=== PATIENT | female | born 1980 | race Caucasian/White ===

== ENCOUNTER → 2016-12-20 | Outpatient (CLI) | payer MEDICAID ==
--- NOTE | 2016-12-20 17:28 | XR ---
EXAMINATION TYPE: XR chest 2V DATE OF EXAM: 12/20/2016 COMPARISON: NONE HISTORY: Bronchitis TECHNIQUE: Frontal and lateral views of the chest are obtained. FINDINGS: Heart and mediastinum are normal. Lungs are clear. Diaphragm is normal. Bony thorax is int act. IMPRESSION: Normal chest
== END | disposition home or self-care (01) ==
LOC: RADXRMAIN 16:41
PROVIDERS: ATTEND Physician Assistant
DX: J20.9 Acute bronchitis, unspecified (principal)
CPT/HCPCS: 71020

== ENCOUNTER 2016-12-22 09:59 | Emergency (ER) | payer MEDICAID ==
[2016-12-22 10:24] VITALS: TEMP 97.9
[2016-12-22] MEDS ORDERED: IPRATROPIUM-ALBUTEROL 3 ML NEB INHALATION STA ×2 (10:34→11:43)
[2016-12-22] MEDS ORDERED: methylPREDNISolone SOD SUCCI 125 MG/2 ML VIAL IV STA (10:34)
--- NOTE | 2016-12-22 10:36 | ED ---
SOB HPI - General Chief Complaint: Shortness of Breath Stated Complaint: delisa, bodyaches Time Seen by Provider: 12/22/16 10:14 Source: patient, RN notes reviewed Mode of arrival: ambulatory Limitations: no limitations - History of Present Illness Initial Comments: 36-year-old female presents emergency Department chief complaint of shortness of breath. Patient states she has been sick since last Sunday. Patient states that she has been seen by her primary care physician's office twice for this. Patient was given IM Rocephin Depo-Medrol given oral is at the mycin and Medrol Dosepak and she uses pro-air inhaler. She states that then he only gives us a short period of time of relief of her shortness of breath. She states initially she does had rattling in her chest but now she states she has a cough is getting worse. Denies any palpitations. Patient denies any fever or chills. She states that she just finished her antibiotics and steroid pack and states that she does not feel any better. Patient was given cough syrup which did not fill it does not want to codeine. Patient denies any sick contacts. Patient states she has a history of exercise-induced asthma. - Related Data Home Medications Medication Instructions Recorded Confirmed Albuterol Inhaler [Ventolin Hfa 1 - 2 puff INHALATION RT-Q6H PRN 12/22/16 Inhaler] Azithromycin [Zithromax Z-pack] See Taper PO DIRECTED 12/22/16 12/22/16 Levothyroxine Sodium [Synthroid] 125 mcg PO DAILY 12/22/16 12/22/16 methylPREDNISolone [Medrol Dose See Taper PO DIRECTED 12/22/16 12/22/16 Pack] Previous Rx's Medication Instructions Recorded Albuterol Nebulized [Ventolin 2.5 mg INHALATION Q4H PRN #25 nebu 12/22/16 Nebulized] predniSONE 50 mg PO DAILY #5 tab 12/22/16 Allergies Allergy/AdvReac Type Severity Reaction Status Date / Time bupropion HCl Allergy Severe Rash/Hives Verified 12/22/16 10:55 [From Wellbutrin] Review of Systems ROS Statement: Those systems with pertinent positive or pertinent negative responses have been documented in the HPI. ROS Other: All systems not noted in ROS Statement are negative. Past Medical History Past Medical History: Asthma Additional Past Medical History / Comment(s): EXERCISE INDUCED ASTHMA., PAST THYROID TEST RESULTS WERE NOT CLEAR -HAVING TESTING REPEATED. History of Any Multi-Drug Resistant Organisms: None Reported Past Surgical History: Adenoidectomy, Cholecystectomy, Tonsillectomy Additional Past Surgical History / Comment(s): nasal polyp Past Anesthesia/Blood Transfusion Reactions: Previous Problems w/ Anesthesia, Motion Sickness Additional Past Anesthesia/Blood Transfusion Reaction / Comment(s): HAS CHILLS OR SHAKING WHEN COMING OUT OF ANESTHESIA. PT ADOPTED - LIMITED FAMILY HX. Past Psychological History: Anxiety Smoking Status: Former smoker Past Alcohol Use History: Occasional Past Drug Use History: None Reported - Past Family History Father Family Medical History: Cancer Additional Family Medical History / Comment(s): LUNG CANCER WITH METS Mother Additional Family Medical History / Comment(s): HEART AND LIVER FAILURE General Exam Limitations: no limitations General appearance: alert, in no apparent distress Head exam: Present: atraumatic, normocephalic, normal inspection Eye exam: Present: normal appearance, PERRL, EOMI. Absent: scleral icterus, conjunctival injection, periorbital swelling ENT exam: Present: normal exam, normal oropharynx, mucous membranes moist, TM's normal bilaterally, normal external ear exam Neck exam: Present: normal inspection, full ROM. Absent: tenderness, meningismus, lymphadenopathy Respiratory exam: Present: wheezes. Absent: normal lung sounds bilaterally, respiratory distress, rales, rhonchi, stridor Cardiovascular Exam: Present: regular rate, normal rhythm, normal heart sounds. Absent: systolic murmur, diastolic murmur, rubs, gallop, clicks Neurological exam: Present: alert, oriented X3, CN II-XII intact Skin exam: Present: warm, dry, intact, normal color. Absent: rash Course Vital Signs 12/22/16 12/22/16 12/22/16 10:19 10:30 10:46 Temperature 97.9 F Pulse Rate 89 92 Respiratory 20 22 Rate Blood Pressure 129/60 O2 Sat by Pulse 91 L Oximetry 12/22/16 12/22/16 12/22/16 11:00 11:51 12:02 Temperature Pulse Rate 88 84 88 Respiratory Rate Blood Pressure O2 Sat by Pulse Oximetry Medical Decision Making - Medical Decision Making 36-year-old female presented for cough congestion shortness of breath. Patient' s lab work, chest x-ray within normal limits. Patient has a URI with acute asthma exacerbation. Patient does feel better at this time. She has minimal wheezing after 2 treatments. Patient was offered admission for further treatments and steroids though she states she will go home at this time and return if symptoms worsen. - Lab Data Result diagrams: 12/22/16 10:40 12/22/16 10:40 Lab Results 12/22/16 12/22/16 12/22/16 Range/Units 10:40 10:40 10:40 WBC 6.9 (3.8-10.6) k/uL RBC 4.46 (3.80-5.40) m/uL Hgb 14.4 (11.4-16.0) gm/dL Hct 40.7 (34.0-46.0) % MCV 91.1 (80.0-100.0) fL MCH 32.2 (25.0-35.0) pg MCHC 35.3 (31.0-37.0) g/dL RDW 13.5 (11.5-15.5) % Plt Count 174 (150-450) k/uL Neutrophils % 76 % Lymphocytes % 15 % Monocytes % 5 % Eosinophils % 1 % Basophils % 0 % Neutrophils # 5.2 (1.3-7.7) k/uL Lymphocytes # 1.1 (1.0-4.8) k/uL Monocytes # 0.4 (0-1.0) k/uL Eosinophils # 0.0 (0-0.7) k/uL Basophils # 0.0 (0-0.2) k/uL Sodium 140 (137-145) mmol/L Potassium 3.8 (3.5-5.1) mmol/L Chloride 107 (98-107) mmol/L Carbon Dioxide 20 L (22-30) mmol/L Anion Gap 13 mmol/L BUN 12 (7-17) mg/dL Creatinine 0.80 (0.52-1.04) mg/dL Est GFR (MDRD) Af Amer >60 (>60 ml/min/1.73 sqM) Est GFR (MDRD) Non-Af >60 (>60 ml/min/1.73 sqM) Glucose 94 (74-99) mg/dL Calcium 8.8 (8.4-10.2) mg/dL Total Bilirubin 0.3 (0.2-1.3) mg/dL AST 24 (14-36) U/L ALT 31 (9-52) U/L Alkaline Phosphatase 64 (38-126) U/L NT-Pro-B Natriuret Pep 141 pg/mL Total Protein 6.7 (6.3-8.2) g/dL Albumin 4.2 (3.5-5.0) g/dL Disposition Clinical Impression: Asthma exacerbation, URI (upper respiratory infection) Disposition: HOME SELF-CARE Condition: Stable Instructions: Asthma (ED) Additional Instructions: Please return to the Emergency Department if symptoms worsen or any other concerns. Prescriptions: Albuterol Nebulized [Ventolin Nebulized] 2.5 mg INHALATION Q4H PRN #25 nebu PRN Reason: difficulty in breathing predniSONE 50 mg PO DAILY #5 tab Referrals: Aly Higgins MD [Primary Care Provider] - 1-2 days Time of Disposition: 12:15
[2016-12-22 10:56] LABS: Basophils % (A) 0 %; CH 30.9; CHCM 34.1; Eosinophils % (A) 1 %; HCT 40.7 % (34.0-46.0); HDW 2.42; HGB 14.4 gm/dL (11.4-16.0); Luc # (Auto) 0.16; Luc % (Auto) 2; Lymphocytes # (A) 1.1 k/uL (1.0-4.8); Lymphocytes % (A) 15 %; MCH 32.2 pg (25.0-35.0); MCHC 35.3 g/dL (31.0-37.0); MCV 91.1 fL (80.0-100.0); Mean Platelet Volume 7.6; Monocytes # (A) 0.4 k/uL (0-1.0); Monocytes % (A) 5 %; Neutrophils # (A) 5.2 k/uL (1.3-7.7); Neutrophils % (A) 76 %; RBC 4.46 m/uL (3.80-5.40); RDW 13.5 % (11.5-15.5); WBC 6.9 k/uL (3.8-10.6); WBC (Perox) 6.94
[2016-12-22 11:09] LABS: ALT 31 U/L (9-52); AST 24 U/L (14-36); Alkaline Phosphatase 64 U/L (38-126); Anion Gap 13 mmol/L; Blood Urea Nitrogen 12 mg/dL (7-17); Calcium 8.8 mg/dL (8.4-10.2); Carbon Dioxide 20 mmol/L (22-30); Chloride 107 mmol/L (98-107); Glucose 94 mg/dL (74-99); Non-African American GFR(MDRD) >60 (>60 ml/min/1.73 sqM); Potassium 3.8 mmol/L (3.5-5.1); Sodium 140 mmol/L (137-145); Total Bilirubin 0.3 mg/dL (0.2-1.3); Total Protein 6.7 g/dL (6.3-8.2)
--- NOTE | 2016-12-22 11:23 | XR ---
EXAMINATION TYPE: XR chest 2V DATE OF EXAM: 12/22/2016 COMPARISON: Chest x-ray from 2 days ago. HISTORY: Shortness of breath and cough. Diagnosis of bronchitis. TECHNIQUE: Frontal and lateral views of the chest are obtained. FINDINGS: There is no focal air space opacity, pleural effusion, or pneumothorax seen. The cardiac silhouette size is within normal limits. The osseous structures are intact. IMPRESSION: No acute cardiopulmonary process. No significant change from prior.
[2016-12-22 12:28] VITALS: BP 123/64; PULSE 91; RESP 14
== END 2016-12-22 12:33 | disposition home or self-care (01) ==
LOC: EC 09:59
DX: J45.901 Unspecified asthma with (acute) exacerbation (principal); J06.9 Acute upper respiratory infection, unspecified; Z87.891 Personal history of nicotine dependence; Z88.8 Allergy status to other drugs, medicaments and biological substances; Z79.899 Other long term (current) drug therapy
CPT/HCPCS: 99285; 96374; 36415; 94640 ×2; 83880; 80053; 85025; 71020; J2930

== ENCOUNTER 2016-12-23 13:42 | Inpatient (IN) | payer MEDICAID ==
[2016-12-23] MEDS ORDERED: SODIUM CHLORIDE 0.9% 1,000 ML IV ONE (14:09)
[2016-12-23] MEDS ORDERED: ALBUTEROL NEBULIZED 2.5 MG/3 ML INHALATION STA (14:10)
[2016-12-23] MEDS ORDERED: IPRATROPIUM 0.5 MG/2.5 ML NEBU INHALATION STA (14:11)
[2016-12-23] MEDS ORDERED: DEXAMETHASONE SOD PHOSPHATE 10 MG/ML 1 ML VIAL IV STA (14:12)
[2016-12-23] MEDS ORDERED: RX INFO: IV CONTRAST WAS GIVEN 1 EACH MISC MISCELLANE PRN (14:13)
[2016-12-23] MEDS ORDERED: AZITHROMYCIN 500 MG in SODIUM CHLORIDE 0.9% 250 ML IVPB STA (14:14)
[2016-12-23] MEDS ORDERED: cefTRIAXone 2,000 MG in SODIUM CHLORIDE 0.9% 100 ML IVPB STA (14:14)
--- NOTE | 2016-12-23 14:18 | ED ---
SOB HPI - General Chief Complaint: Shortness of Breath Stated Complaint: SUGAR Time Seen by Provider: 12/23/16 13:55 Source: patient Mode of arrival: ambulatory Limitations: no limitations - History of Present Illness Initial Comments: Shortness of breath, this is ongoing for about a week now she was seen in ER yesterday and she was also seen by family doctor twice a lawsuit is just some steroids and she'll prescription of Zithromax and she also had intramuscular shot of. Today her breathing is worse she is quite hypoxic and she spiked a fever today is 102.1 and pulse is quite high. She is complaining about the chest pain when she takes a deep breath she is quite short winded and feels chest pressure in the center of her chest. Past medical history is significant for asthma no other medical problems - Related Data Home Medications Medication Instructions Recorded Confirmed Albuterol Inhaler [Ventolin Hfa 1 - 2 puff INHALATION RT-Q6H PRN 12/22/16 Inhaler] Levothyroxine Sodium [Synthroid] 125 mcg PO DAILY 12/22/16 12/23/16 Promethaz-Cod 6.25-10 mg/5 ml 5 ml PO Q6H PRN 12/23/16 12/23/16 [Phenergan with Codeine] guaiFENesin [Mucinex] 600 mg PO BID PRN 12/23/16 12/23/16 Previous Rx's Medication Instructions Recorded Albuterol Nebulized [Ventolin 2.5 mg INHALATION Q4H PRN #25 nebu 12/22/16 Nebulized] predniSONE 50 mg PO DAILY #5 tab 12/22/16 Allergies Allergy/AdvReac Type Severity Reaction Status Date / Time bupropion HCl Allergy Severe Rash/Hives Verified 12/23/16 14:26 [From Wellbutrin] Review of Systems ROS Statement: Those systems with pertinent positive or pertinent negative responses have been documented in the HPI. ROS Other: All systems not noted in ROS Statement are negative. Past Medical History Past Medical History: Asthma Additional Past Medical History / Comment(s): EXERCISE INDUCED ASTHMA., PAST THYROID TEST RESULTS WERE NOT CLEAR -HAVING TESTING REPEATED. History of Any Multi-Drug Resistant Organisms: None Reported Past Surgical History: Adenoidectomy, Cholecystectomy, Tonsillectomy Additional Past Surgical History / Comment(s): nasal polyp Past Anesthesia/Blood Transfusion Reactions: Previous Problems w/ Anesthesia, Motion Sickness Additional Past Anesthesia/Blood Transfusion Reaction / Comment(s): HAS CHILLS OR SHAKING WHEN COMING OUT OF ANESTHESIA. PT ADOPTED - LIMITED FAMILY HX. Past Psychological History: Anxiety Smoking Status: Former smoker Past Alcohol Use History: Occasional Past Drug Use History: None Reported - Past Family History Father Family Medical History: Cancer Additional Family Medical History / Comment(s): LUNG CANCER WITH METS Mother Additional Family Medical History / Comment(s): HEART AND LIVER FAILURE General Exam - General Exam Comments Initial Comments: General: The patient is awake and alert, in moderate distress Skin: Skin is warm and dry and no rashes or lesions are noted. Eye: Pupils are equal, round and reactive to light, extra-ocular movements are intact; there is normal conjunctiva bilaterally. Ears, nose, mouth and throat: There are moist mucous membranes and no oral lesions. Neck: The neck is supple, there is no tenderness or JVD. Cardiovascular: There is a regular rate and rhythm. No murmur, rub or gallop is appreciated. She has a tachycardia Respiratory: To auscultation bilateral, severe wheezing bilateral Gastrointestinal: Soft, non-distended, non-tender abdomen without masses or organomegaly noted. There is no rebound or guarding present. Bowel sounds are unremarkable. Back: There is no tenderness to palpation in the midline. There is no obvious deformity. Musculoskeletal: Normal ROM, no tenderness, There is no pedal edema. There is no calf tenderness or swelling. No cords were appreciated. Neurological: CN II-XII intact, Cranial nerves III through XII are intact. There are no obvious motor or sensory deficits. Coordination appears grossly intact. Speech is normal. Psychiatric: Cooperative, appropriate mood & affect, normal judgment. Limitations: no limitations Course Vital Signs 12/23/16 12/23/16 12/23/16 13:49 14:06 14:31 Temperature 102.1 F H 101.9 F H Pulse Rate 116 H 112 H Respiratory 20 18 Rate Blood Pressure 119/58 124/61 O2 Sat by Pulse 97 93 L Oximetry 12/23/16 12/23/16 12/23/16 15:05 15:30 16:12 Temperature 100.5 F H Pulse Rate 115 H 115 H 102 H Respiratory 20 18 Rate Blood Pressure 115/55 111/52 O2 Sat by Pulse 94 L 93 L Oximetry - Reevaluation(s) Reevaluation #1: 12/23/16 16:41 EKG is sinus tachycardia heart rate 122 IL interval is 124 QRS duration is 80 QT /QTc is 336/478 and 50 mL EKG does not reveal any ST elevation or ST depression is definitely tachycardic Medical Decision Making - Lab Data Result diagrams: 12/23/16 14:10 12/23/16 14:10 Lab Results 12/23/16 12/23/16 12/23/16 Range/Units 14:10 14:10 14:10 WBC 10.2 (3.8-10.6) k/uL RBC 4.40 (3.80-5.40) m/uL Hgb 13.9 (11.4-16.0) gm/dL Hct 40.8 (34.0-46.0) % MCV 92.5 (80.0-100.0) fL MCH 31.6 (25.0-35.0) pg MCHC 34.1 (31.0-37.0) g/dL RDW 13.7 (11.5-15.5) % Plt Count 172 (150-450) k/uL Neutrophils % 91 % Lymphocytes % 6 % Monocytes % 2 % Eosinophils % 1 % Basophils % 0 % Neutrophils # 9.3 H (1.3-7.7) k/uL Lymphocytes # 0.6 L (1.0-4.8) k/uL Monocytes # 0.2 (0-1.0) k/uL Eosinophils # 0.1 (0-0.7) k/uL Basophils # 0.0 (0-0.2) k/uL PT (9.0-12.0) sec INR (<1.1) APTT (22.0-30.0) sec Sodium 139 (137-145) mmol/L Potassium 4.0 (3.5-5.1) mmol/L Chloride 105 (98-107) mmol/L Carbon Dioxide 21 L (22-30) mmol/L Anion Gap 13 mmol/L BUN 13 (7-17) mg/dL Creatinine 0.60 (0.52-1.04) mg/dL Est GFR (MDRD) Af Amer >60 (>60 ml/min/1.73 sqM) Est GFR (MDRD) Non-Af >60 (>60 ml/min/1.73 sqM) Glucose 119 H (74-99) mg/dL Plasma Lactic Acid Je 1.6 (0.7-2.0) mmol/L Calcium 8.7 (8.4-10.2) mg/dL Total Bilirubin 0.3 (0.2-1.3) mg/dL AST 48 H (14-36) U/L ALT 37 (9-52) U/L Alkaline Phosphatase 60 (38-126) U/L Total Protein 6.7 (6.3-8.2) g/dL Albumin 4.1 (3.5-5.0) g/dL Group A Strep Rapid (Negative) 12/23/16 12/23/16 Range/Units 14:10 14:10 WBC (3.8-10.6) k/uL RBC (3.80-5.40) m/uL Hgb (11.4-16.0) gm/dL Hct (34.0-46.0) % MCV (80.0-100.0) fL MCH (25.0-35.0) pg MCHC (31.0-37.0) g/dL RDW (11.5-15.5) % Plt Count (150-450) k/uL Neutrophils % % Lymphocytes % % Monocytes % % Eosinophils % % Basophils % % Neutrophils # (1.3-7.7) k/uL Lymphocytes # (1.0-4.8) k/uL Monocytes # (0-1.0) k/uL Eosinophils # (0-0.7) k/uL Basophils # (0-0.2) k/uL PT 10.2 (9.0-12.0) sec INR 1.0 (<1.1) APTT 25.9 (22.0-30.0) sec Sodium (137-145) mmol/L Potassium (3.5-5.1) mmol/L Chloride (98-107) mmol/L Carbon Dioxide (22-30) mmol/L Anion Gap mmol/L BUN (7-17) mg/dL Creatinine (0.52-1.04) mg/dL Est GFR (MDRD) Af Amer (>60 ml/min/1.73 sqM) Est GFR (MDRD) Non-Af (>60 ml/min/1.73 sqM) Glucose (74-99) mg/dL Plasma Lactic Acid Je (0.7-2.0) mmol/L Calcium (8.4-10.2) mg/dL Total Bilirubin (0.2-1.3) mg/dL AST (14-36) U/L ALT (9-52) U/L Alkaline Phosphatase (38-126) U/L Total Protein (6.3-8.2) g/dL Albumin (3.5-5.0) g/dL Group A Strep Rapid Negative (Negative) Critical Care Time Total Critical Care Time: 45 Critical Care Time: He has been in and out of the family doctor's office as well as here for last 4 days, her shortness of breath has gotten worse she is quite tachycardic with the Clinic and Review of heart is normal CBC normal, BS metabolic panel and CT of the chest which was placed to return to rule out any PE and CT of the pleuritic chest pain and it showed pulmonary team comparing to her x-ray from yesterday she was started on Lasix IV she had Ventolin and Atrovent neb prolonged 1 for asthma and a 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 Philip's service, we also have a septic workup done including urine culture blood culture in the meantime considering her high fever up to keep her on empiric antibiotics Disposition Clinical Impression: Dyspnea, Tachycardia, Fever, Pulmonary edema Disposition: ADMITTED IP TO THIS HOSP Condition: Good Referrals: Aly Higgins MD [Primary Care Provider] - 1-2 days
[2016-12-23] MEDS ORDERED: ACETAMINOPHEN TAB 500 MG TAB PO STA (14:21)
[2016-12-23] MEDS: SODIUM CHLORIDE 0.9% 1,000 ML IV SCH ×2 (14:23→18:12)
[2016-12-23 14:27] LABS: Basophils % (A) 0 %; CH 31.2; CHCM 33.9; Eosinophils # (A) 0.1 k/uL (0-0.7); Eosinophils % (A) 1 %; HCT 40.8 % (34.0-46.0); HDW 2.38; HGB 13.9 gm/dL (11.4-16.0); Luc % (Auto) 1; Lymphocytes # (A) 0.6 k/uL (1.0-4.8); Lymphocytes % (A) 6 %; MCH 31.6 pg (25.0-35.0); MCHC 34.1 g/dL (31.0-37.0); MCV 92.5 fL (80.0-100.0); Mean Platelet Volume 7.7; Monocytes # (A) 0.2 k/uL (0-1.0); Monocytes % (A) 2 %; Neutrophils # (A) 9.3 k/uL (1.3-7.7); Neutrophils % (A) 91 %; RDW 13.7 % (11.5-15.5); WBC 10.2 k/uL (3.8-10.6); WBC (Perox) 10.38
[2016-12-23 14:35] LABS: Partial Thromboplastin Time 25.9 sec (22.0-30.0); Prothrombin Time 10.2 sec (9.0-12.0)
[2016-12-23 14:39] LABS: ALT 37 U/L (9-52); AST 48 U/L (14-36); Alkaline Phosphatase 60 U/L (38-126); Anion Gap 13 mmol/L; Blood Urea Nitrogen 13 mg/dL (7-17); Calcium 8.7 mg/dL (8.4-10.2); Carbon Dioxide 21 mmol/L (22-30); Chloride 105 mmol/L (98-107); Glucose 119 mg/dL (74-99); Non-African American GFR(MDRD) >60 (>60 ml/min/1.73 sqM); Sodium 139 mmol/L (137-145); Total Bilirubin 0.3 mg/dL (0.2-1.3); Total Protein 6.7 g/dL (6.3-8.2)
--- NOTE | 2016-12-23 16:00 | CT ---
EXAMINATION TYPE: CT angio chest DATE OF EXAM: 12/23/2016 3:43 PM COMPARISON: NONE HISTORY: Patient complains of severe shortness of breath, unresponsive to treatment. CT DLP: 439.3 mGycm Automated exposure control for dose reduction was used. CONTRAST: CTA scan of the thorax is performed with IV Contrast, patient injected with 100 mL of Omnipaque 350, pulmonary embolism protocol. There are 3-D post processed images.. FINDINGS: There are patchy bilateral areas of pulmonary alveolar edema. There is no pleural effusion. There is no pericardial effusion. There is no sign of aortic aneurysm or dissection. There is a 1.7 cm left bronchial lymph node. There is 1.5 cm right bronchial lymph node. There is low attenuation adjacent to the right lower lobe pulmonary artery thought to be due to a 1 cm lymph node on axial image 59. There is suboptimal contrast density in the pulmonary arteries. The bony thorax i s intact. IMPRESSION: NO EVIDENCE OF PULMONARY EMBOLISM. MILD BRONCHIAL ADENOPATHY. BILATERAL PATCHY PULMONARY EDEMA OF [facility] ERTAIN ORIGIN. THE PULMONARY EDEMA IS NEW COMPARED TO CHEST X-RAY YESTERDAY. THIS COULD RELATE TO DEV ELOPING RDS.
[2016-12-23] MEDS ORDERED: POTASSIUM CHLORIDE ORAL LIQUID 40 MEQ/30 ML CUP PO ONE (16:27)
[2016-12-23] MEDS ORDERED: FUROSEMIDE 10 MG/ML 10 ML VIAL IV STA (16:28)
[2016-12-23] MEDS ORDERED: ALBUTEROL INHALER 60 PUFF/8 GM INHALER INHALATION PRN (17:01)
[2016-12-23] MEDS: ALBUTEROL NEBULIZED 2.5 MG/3 ML INHALATION PRN (19:07)
[2016-12-23] MEDS ORDERED: FUROSEMIDE 10 MG/ML 4 ML VIAL IV STA (20:08)
[2016-12-23] MEDS: PROMETHAZ-COD 6.25-10 MG/5 ML 5 ML CUP PO PRN (20:18)
[2016-12-23] MEDS: methylPREDNISolone SOD SUCCI 125 MG/2 ML VIAL IV SCH ×2 (20:34→23:19)
[2016-12-23 20:50] LABS: Glucose,Whole Blood 194 mg/dL (75-99)
[2016-12-23] MEDS: INSULIN LISPRO (humaLOG) 300 UNIT/3 ML VIAL SQ SCH (21:01)
[2016-12-23 21:32] LABS: Appearance,Urine Clear (Clear); Bilirubin,Urine Negative (Negative); Glucose,Urine (UA) Negative (Negative); Ketones,Urine Negative (Negative); Leukocyte Esterase,Urine Negative (Negative); Nitrite,Urine Negative (Negative); Particle Count 491; Protein,Urine Negative (Negative); RBC,Urine 6 /hpf (0-5); Specific Gravity,Urine 1.004 (1.001-1.035); Squamous Epithelial Cell,Urine <1 /hpf (0-4); UA Billing (MACRO vs. MICRO) MICRO; Urobilinogen,Urine <2.0 mg/dL (<2.0); WBC,Urine 1 /hpf (0-5)
[2016-12-23] MEDS ORDERED: MELATONIN 5 MG TABLET PO PRN (21:59)
[2016-12-23] MEDS: ACETAMINOPHEN TAB 325 MG TAB PO PRN (23:20)
[2016-12-24] MEDS: ALBUTEROL NEBULIZED 2.5 MG/3 ML INHALATION PRN ×4 (01:10→15:57)
[2016-12-24] MEDS: PROMETHAZ-COD 6.25-10 MG/5 ML 5 ML CUP PO PRN ×2 (01:58→18:30)
[2016-12-24] MEDS: SODIUM CHLORIDE 0.9% 1,000 ML IV SCH ×3 (02:19→18:27)
[2016-12-24 05:45] LABS: Glucose,Whole Blood 138 mg/dL (75-99)
[2016-12-24] MEDS ORDERED: predniSONE 50 MG TAB PO SCH (09:00)
[2016-12-24] MEDS ORDERED: SPIRONOLACTONE 25 MG TAB PO SCH (09:00)
[2016-12-24] MEDS ORDERED: FUROSEMIDE 10 MG/ML 4 ML VIAL IV SCH (09:00)
--- NOTE | 2016-12-24 10:59 | XR ---
EXAMINATION TYPE: XR chest 2V DATE OF EXAM: 12/24/2016 HISTORY: sob. REFERENCE: Previous study dated 12/22/2016. FINDINGS: There is mild vascular congestion. There is no shannen edema or pneumonia. The heart is not e nlarged. IMPRESSION: VASCULAR CONGESTION WITHOUT OTHER ABNORMALITY.
[2016-12-24] MEDS: methylPREDNISolone SOD SUCCI 125 MG/2 ML VIAL IV SCH ×4 (11:24→22:16)
[2016-12-24] MEDS: LEVOTHYROXINE 125 MCG TAB PO SCH (11:24)
[2016-12-24] MEDS: INSULIN LISPRO (humaLOG) 300 UNIT/3 ML VIAL SQ SCH ×4 (11:24→22:33)
[2016-12-24] MEDS: ENOXAPARIN 40 MG/0.4 ML SYRINGE SQ SCH (11:25)
[2016-12-24 12:16] LABS: Glucose,Whole Blood 131 mg/dL (75-99)
[2016-12-24] MEDS: guaiFENesin 600 MG TABLET.ER PO PRN (12:32)
--- NOTE | 2016-12-24 13:12 | CONS ---
DATE OF CONSULTATION: Mrs. Galvez is a 36-year-old female who is seen for cardiac evaluation. The patient's emergency medical record reviewed. This patient has been not doing well for the last one week. She initially started with body ache and subsequently she had fever and shortness of breath and nonproductive cough. The patient was treated as an outpatient with steroids as well as antibiotics without any significant improvement. Patient subsequently came to the emergency room on Sunday. She was given IV steroids and was sent home. Yesterday, she continued to have short of breath and she was hypoxic and came to the emergency room. The patient had a temperature of 102.1. She denies any related chest pain. Patient denies any previous cardiac history of cardiomyopathy or any heart murmur. Home medications included: 1. Ventolin inhaler. 2. Mucinex. 3. Synthroid. 4. Albuterol. 5. Prednisone. Past medical history includes a history of cholecystectomy, tonsillectomy, history of exercise-induced asthma, history of anxiety. Smoking status: Former smoker. Family history is otherwise unremarkable. Physical examination in the emergency room revealed the patient's heart rate 116. Patient had a temperature of 102.1 and oxygen saturation was 97%. The patient's respiratory rate was 20. Patient is feeling slightly better. She is not in any acute respiratory distress. At present temperature is 99.2. Blood pressure is 129/62 millimeters of mercury, oxygen saturation is 93% on 3 liters of nasal cannula. HEENT examination is negative. Neck is supple. There is no increase in jugular venous pressure. Both the carotid pulses are felt. There is no bruit. Chest is symmetrical. HEART: The PMI is not felt. First and second heart sounds are normal. There is no evidence of any murmur. Lungs reveal bilateral few crackles more marked on the left side. ABDOMEN: Soft. EXTREMITIES: Peripheral pulsations are 2+. EKG shows evidence of sinus tachycardia without any acute ischemic changes. Patient's initial chest x-ray done 2 days ago was normal. CT scan done yesterday does not show any evidence of pulmonary embolism but there suggestion of pulmonary edema whether this is possibly developing pneumonia or ARDS. The patient's Pro-BNP level was only 117. Patient's white count is 10,200, but neutrophils are 90%. FINAL IMPRESSION: This patient is admitted with acute respiratory distress and cough. Patient is either developing pneumonia or acute respiratory distress syndrome, exact etiology of the infection is unclear. I do not think this patient's pulmonary edema on the CT scan is cardiogenic pulmonary edema. Patient's BNP level is 117. We will do echo and Doppler study. Discontinue the IV Lasix. If patient does not get better, pulmonary consultation is suggested.
[2016-12-24] MEDS: PANTOPRAZOLE 40 MG/10 ML VIAL IVP SCH (16:15)
[2016-12-24 17:07] LABS: Glucose,Whole Blood 188 mg/dL (75-99)
[2016-12-24] MEDS ORDERED: HYDROcodone/APAP 5-325MG 1 EACH TAB PO PRN (17:13)
[2016-12-24] MEDS ORDERED: AZITHROMYCIN 500 MG in SODIUM CHLORIDE 0.9% 250 ML IVPB SCH (18:00)
[2016-12-24] MEDS: ASPIRIN 325 MG TAB PO SCH (18:28)
[2016-12-24] MEDS ORDERED: IPRATROPIUM 0.5 MG/2.5 ML NEBU INHALATION SCH (20:00)
[2016-12-24] MEDS ORDERED: LEVALBUTEROL NEB 1.25 MG/3 ML AMP INHALATION SCH (20:00)
[2016-12-24] MEDS: IPRATROPIUM 0.5 MG/2.5 ML NEBU INHALATION SCH (20:37)
[2016-12-24] MEDS: FORMOTEROL FUMARATE 20 MCG/2 ML NEBU INHALATION SCH (20:37)
[2016-12-24] MEDS: BUDESONIDE 1 MG/2 ML NEBU INHALATION SCH (20:37)
[2016-12-24] MEDS: LEVALBUTEROL NEB (CONC) 1.25 MG/0.5 ML AMP INHALATION SCH (20:38)
--- NOTE | 2016-12-24 20:52 | HP ---
DATE OF ADMISSION: 12/23/2016 CHIEF COMPLAINT: Shortness of breath, cough and sputum. HISTORY OF PRESENT ILLNESS: This 36-year-old woman with a past medical history of multiple medical problems, including asthma, history of hypothyroidism, history of hypothyroidism, adenoidectomy, cholecystectomy, anxiety being followed by Dr. 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 The patient was visiting also on Sunday. The patient since last Sunday. The patient also had outpatient antibiotics including Z-Gokul as well as Medrol Dosepak. As well cough and sputum was increasing and the patient became quite short of breath yesterday and the patient came to [facility] and was admitted to the hospital for further evaluation and treatment. The fever was up to 102.1. There is no history of any rigors or chills. No history of headache, loss of consciousness or seizures. The patient on admission had pulse ox of 94% on 8 liters. The shows features of tachycardia also. There is no history of any melena, hematochezia at this time. PAST MEDICAL HISTORY: History of hypothyroidism. History of adenoidectomy, cholecystectomy, hysterectomy and tonsillectomy. Medications prior to admission include home medications are: 1. Prednisone 50 mg p.o. daily. 2. Mucinex 600 mg b.i.d. p.r.n. 3. Phenergan 5 mL q.6h p.r.n. 4. Synthroid 120 mcg. 5. Ventolin 2.5 q.4 p.r.n. 6. Ventolin HFA inhaler 1 to 2 puffs q.6h p.r.n. ALLERGIES: BUPROPION. FAMILY HISTORY: History of lung cancer with metastases. SOCIAL HISTORY: Previous history of smoking. No history of current smoking or alcohol intake. 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 REVIEW OF SYSTEMS: ENT: No diminishing hearing or diminished vision. CARDIOVASCULAR: No angina, palpitations. RESPIRATORY: As mentioned earlier. GASTROINTESTINAL: No nausea or vomiting. : No dysuria. CENTRAL NERVOUS SYSTEM: No numbness or weakness. ALLERGIES/IMMUNOLOGY: As mentioned earlier. MUSCULOSKELETAL: As mentioned earlier. HEMATOLOGY/ONCOLOGY: No history of anemia. ENDOCRINE: No history of diabetes mellitus, hypothyroidism. CONSTITUTIONAL: As mentioned earlier. RHEUMATOLOGY: Negative. DERMATOLOGY: As mentioned earlier. PSYCHIATRY: As mentioned earlier. PHYSICAL EXAMINATION: The patient is alert and oriented times three. Pulse is 91, blood pressure 126/66, respirations 20, temperature normal, pulse ox 91% on 3 L. Extremely short of breath at rest. HEENT: Conjunctivae normal. Oral mucosa moist. NECK: No jugular venous distention. No carotid bruit. No lymph node enlargement. CARDIOVASCULAR: S1, S2. No S3, no S4. RESPIRATORY: Breath sounds diminished at the bases. Bilateral scattered rhonchi. expiratory wheezing and crackles bilaterally. ABDOMEN: Soft. Nontender. No hepatosplenomegaly. LEGS: No edema. No swelling. Nervous system: Higher functions as mentioned earlier. Cranial nerves 2 thru 12 grossly intact. Moves all 4 limbs. No focal motor or sensory deficits. LYMPHATICS: No lymph nodes palpable in the neck, axillae or groin. SKIN: No ulcer, rash or bleeding. JOINTS: No active deforming arthropathy. LABS: At this time, Accu-Cheks 131, 130, influenza negative. CBC noted. White count is 10.3, hemoglobin 13.9, CO2 is 21 and glucose is 194, AST is 48. ASSESSMENT: 1. Acute bronchial asthma, acute exacerbation, with bilateral bronchopneumonia with acute hypoxic respiratory failure as well as sepsis, present on admission. 2. Increased random blood sugar. 3. Increased AST mild. 4. History of hypothyroidism. 5. History of ) induced asthma. 6. History of adenoidectomy. 7. History of cholecystectomy. 8. Remote history of nicotine dependence. 9. History of anxiety, not otherwise specified. 10. FULL CODE. RECOMMENDATIONS AND DISCUSSION: Is in this 37 -year-old woman who presented with multiple complex medical issues, we will monitor the patient closely, continue the current medications, continue symptomatic treatment. At this time I would recommend intensive bronchodilator treatment, and as well as empiric antibiotics. Rocephin and Zithromax will be utilized. IV steroids. Consult pulmonary. Guarded prognosis because of multiple complex medical issues. Further recommendations to follow. Cardiology evaluation has been done. The patient's BNP is only 117. See orders for details. MTDD
[2016-12-24] MEDS ORDERED: TEMAZEPAM 15 MG CAP PO PRN (21:00)
[2016-12-24 21:20] LABS: Glucose,Whole Blood 111 mg/dL (75-99)
[2016-12-24] MEDS: ALPRAZolam 0.25 MG TAB PO PRN (22:15)
[2016-12-24] MEDS: ACETAMINOPHEN TAB 325 MG TAB PO PRN (22:15)
[2016-12-25 06:20] LABS: Basophils % (A) 0 %; CH 30.5; Eosinophils % (A) 0 %; HCT 38.1 % (34.0-46.0); HDW 2.53; HGB 13.5 gm/dL (11.4-16.0); Luc # (Auto) 0.22; Luc % (Auto) 2; Lymphocytes # (A) 1.2 k/uL (1.0-4.8); Lymphocytes % (A) 8 %; MCH 31.8 pg (25.0-35.0); MCHC 35.3 g/dL (31.0-37.0); MCV 90.1 fL (80.0-100.0); Mean Platelet Volume 7.6; Monocytes # (A) 0.3 k/uL (0-1.0); Monocytes % (A) 2 %; Neutrophils # (A) 12.6 k/uL (1.3-7.7); Neutrophils % (A) 88 %; RBC 4.23 m/uL (3.80-5.40); RDW 13.3 % (11.5-15.5); WBC 14.4 k/uL (3.8-10.6); WBC (Perox) 14.74
[2016-12-25 06:35] LABS: ALT 34 U/L (9-52); AST 45 U/L (14-36); Alkaline Phosphatase 58 U/L (38-126); Anion Gap 9 mmol/L; Blood Urea Nitrogen 17 mg/dL (7-17); Calcium 9.2 mg/dL (8.4-10.2); Carbon Dioxide 30 mmol/L (22-30); Chloride 100 mmol/L (98-107); Glucose 140 mg/dL (74-99); Non-African American GFR(MDRD) >60 (>60 ml/min/1.73 sqM); Sodium 139 mmol/L (137-145); Total Bilirubin 0.5 mg/dL (0.2-1.3); Total Protein 6.4 g/dL (6.3-8.2)
[2016-12-25 06:54] LABS: Glucose,Whole Blood 127 mg/dL (75-99)
[2016-12-25] MEDS: methylPREDNISolone SOD SUCCI 125 MG/2 ML VIAL IV SCH ×4 (07:04→23:07)
[2016-12-25] MEDS: INSULIN LISPRO (humaLOG) 300 UNIT/3 ML VIAL SQ SCH ×4 (07:04→20:56)
[2016-12-25] MEDS: LEVOTHYROXINE 125 MCG TAB PO SCH (07:05)
[2016-12-25] MEDS: LEVALBUTEROL NEB (CONC) 1.25 MG/0.5 ML AMP INHALATION SCH ×4 (07:50→21:14)
[2016-12-25] MEDS: FORMOTEROL FUMARATE 20 MCG/2 ML NEBU INHALATION SCH ×2 (07:50→21:15)
[2016-12-25] MEDS: IPRATROPIUM 0.5 MG/2.5 ML NEBU INHALATION SCH ×4 (07:50→21:14)
[2016-12-25] MEDS: BUDESONIDE 1 MG/2 ML NEBU INHALATION SCH ×2 (07:50→21:15)
[2016-12-25] MEDS: PANTOPRAZOLE 40 MG/10 ML VIAL IVP SCH (08:26)
[2016-12-25] MEDS: ASPIRIN 325 MG TAB PO SCH (08:27)
[2016-12-25] MEDS: ENOXAPARIN 40 MG/0.4 ML SYRINGE SQ SCH (08:27)
[2016-12-25] MEDS: guaiFENesin 600 MG TABLET.ER PO PRN (08:43)
--- NOTE | 2016-12-25 11:35 | ECHOF ---
Referral Reason:sob MEASUREMENTS -------- HEIGHT: 165.1 cm WEIGHT: 95.3 kg BP: 114/58 RVIDd: 2.8 cm (< 3.3) IVSd: 0.9 cm (0.6 - 1.1) LVIDd: 5.0 cm (3.9 - 5.3) LVPWd: 1.1 cm (0.6 - 1.1) IVSs: 1.4 cm LVIDs: 3.1 cm LVPWs: 1.4 cm LA Diam: 3.7 cm (2.7 - 3.8) LAESV Index (A-L): 32.52 ml/m Ao Diam: 3.2 cm (2.0 - 3.7) AV Cusp: 2.0 cm (1.5 - 2.6) LA Diam: 3.8 cm (2.7 - 3.8) MV EXCURSION: 17.570 mm (> 18.000) MV EF SLOPE: 82 mm/s (70 - 150) EPSS: 0.4 cm MV E Christiano: 1.11 m/s MV DecT: 198 ms MV A Christiano: 0.89 m/s MV E/A Ratio: 1.25 RAP: 5.00 mmHg RVSP: 19.17 mmHg FINDINGS -------- Sinus rhythm. This was a technically good study. LV size, wall thickness and systolic function are normal, with an EF greater than 55%. The right ventricle is normal in size. LA is midly dilated 29-33ml/m2. The right atrial size is normal. The aortic valve is trileaflet, and appears structurally normal. No aortic stenosis or regurgitation. Mild mitral regurgitation is present. Mild tricuspid regurgitation present. There is no evidence of pulmonary hypertension. The right ventricular systolic pressure, as measured by Doppler, is 19.17mmHg. There is no pulmonic regurgitation present. The aortic root size is normal. There is no pericardial effusion. CONCLUSIONS -------- 1. LV size, wall thickness and systolic function are normal, with an EF greater than 55%. 2. LA is midly dilated 29-33ml/m2. 3. Mild mitral regurgitation is present. 4. Mild tricuspid regurgitation present. 5. There is no evidence of pulmonary hypertension. 6. The right ventricular systolic pressure, as measured by Doppler, is 19.17mmHg. 7. There is no pulmonic regurgitation present. 8. The aortic root size is normal. 9. There is no pericardial effusion. [employer]ER: Tracie Orozco RDCS
[2016-12-25 12:04] LABS: Glucose,Whole Blood 176 mg/dL (75-99)
--- NOTE | 2016-12-25 13:59 | P.CNPUL ---
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 The patient was in a good state of health until early last week. Apparently, while doing her home. On an elderly patient, she got exposed to what she thinks to be urine/ stool/contaminated material at the patient's home. This exposure occurred approximately 10 days ago. 2 days following that she started having generalized body aches and thickness and feeling weak and ill and hot and cold. She continue to take Motrin on and off which made her sweat and following that she started having increased cough and shortness of breath. For that reason she presented emergency department twice on and 12/22/2016 and in both visits the patient had a chest x-ray that did not show any pneumonias. She finally came back to the emergency department on 12/24/2016 and she was found to have upper lobe groundglass pulmonary changes. This was further confirmed by computed tomography scan of the chest that showed groundglass infiltration of the upper lobes more so in the left upper lobe area. She is currently less hypoxic. She is on 2 L of oxygen and her pulse is up to 95%. Earlier today she was 86% on room air and 91% on 2 L. With the breathing treatments she is currently producing some yellowish sputum. No wheezes. She has history of bronchial asthma. She has undergone previous sinus surgery for nasal polyps. No recurrent pneumonias. No immunosuppression. No maintenance inhalers for asthma and she's been essentially using pro-air for exercise- induced asthma and she takes pro-air only prior to exercise. No hemoptysis. No swelling in lower extremities. No skin rashes. No upper airway irritation from any potential exposure of any pneumothorax it or noxious materials. She is currently on a combination of Rocephin and Zithromax. Note that the patient did visit her primary care physician and she was seen by the nurse practitioner she was given a course of Z-Gokul and a Medrol Dosepak which she completed prior to her hospital admission. She started the Zithromax on 12/18 and she was given also a shot of Rocephin on 12/20/2016 Review of Systems All systems: negative Constitutional: Denies chills, Denies fever Eyes: denies blurred vision, denies pain Ears, nose, mouth and throat: Denies headache, Denies sore throat Cardiovascular: Denies chest pain, Denies shortness of breath Respiratory: Reports dyspnea, Denies cough Gastrointestinal: Denies abdominal pain, Denies diarrhea, Denies nausea, Denies vomiting Genitourinary: Denies dysuria, Denies hematuria Musculoskeletal: Denies myalgias Integumentary: Denies pruritus, Denies rash Neurological: Denies numbness, Denies weakness Psychiatric: Denies anxiety, Denies depression Endocrine: Denies fatigue, Denies weight change Past Medical History Past Medical History: Asthma, Thyroid Disorder Additional Past Medical History / Comment(s): EXERCISE INDUCED ASTHMA. HYPOTHYROID , and nasal polyps. History of Any Multi-Drug Resistant Organisms: None Reported Past Surgical History: Adenoidectomy, Cholecystectomy, Tonsillectomy Additional Past Surgical History / Comment(s): Nasal polyp removal Past Anesthesia/Blood Transfusion Reactions: Previous Problems w/ Anesthesia, Motion Sickness Additional Past Anesthesia/Blood Transfusion Reaction / Comment(s): HAS CHILLS OR SHAKING WHEN COMING OUT OF ANESTHESIA. PT ADOPTED - LIMITED FAMILY HX. Smoking Status: Former smoker Past Alcohol Use History: Occasional Past Drug Use History: None Reported - Past Family History Father Family Medical History: Cancer Additional Family Medical History / Comment(s): LUNG CANCER WITH METS Mother Additional Family Medical History / Comment(s): HEART AND LIVER FAILURE Medications and Allergies Home Medications Medication Instructions Recorded Confirmed Type Albuterol Inhaler [Ventolin Hfa 1 - 2 puff INHALATION RT-Q6H PRN 12/22/16 History Inhaler] Levothyroxine Sodium [Synthroid] 125 mcg PO DAILY 12/22/16 12/23/16 History Promethaz-Cod 6.25-10 mg/5 ml 5 ml PO Q6H PRN 12/23/16 12/23/16 History [Phenergan with Codeine] guaiFENesin [Mucinex] 600 mg PO BID PRN 12/23/16 12/23/16 History Allergies Allergy/AdvReac Type Severity Reaction Status Date / Time bupropion HCl Allergy Severe Rash/Hives Verified 12/23/16 14:26 [From Wellbutrin] Physical Exam Vitals: Vital Signs Temp Pulse Pulse Resp BP Pulse Ox 12/25/16 11:47 72 17 124/64 91 L 12/25/16 08:15 76 12/25/16 08:06 76 12/25/16 08:05 72 12/25/16 08:00 96.6 F L 80 17 118/59 94 L 12/25/16 07:50 72 12/25/16 04:00 97.4 F L 64 18 114/58 92 L 12/25/16 00:00 97.9 F 81 17 119/58 95 12/24/16 21:00 84 12/24/16 20:51 80 12/24/16 20:50 80 12/24/16 20:38 80 12/24/16 19:51 97.7 F 87 18 127/57 94 L 12/24/16 16:15 84 12/24/16 16:00 98.6 F 98 129/67 91 L 12/24/16 15:57 84 Intake and Output 12/24/16 12/25/16 12/25/16 22:59 06:59 14:59 Intake Total 536 286 Output Total 400 Balance 536 -400 286 Intake: IV 250 Azithromycin 500 mg In 250 Sodium Chloride 0.9% 250 ml @ 125 mls/hr IVPB DAILY@1800 [facility] Rx#: [id number] Intake, IV Titration 50 50 Amount cefTRIAXone 1,000 mg In 50 50 Sodium Chloride 0.9% 50 ml @ 100 mls/hr IVPB Q24HR [facility] Rx#:[id number] Oral 236 236 Output: Urine 400 Other: Voiding Method Toilet Toilet Toilet # Voids 0 Weight 95.2 kg The patient appeared well nourished and normally developed. Vital signs as documented. Head exam is unremarkable. No scleral icterus or corneal arcus noted. Neck is without jugular venous distension, thyromegaly, or carotid bruits. Carotid upstrokes are brisk bilaterally. Lungs are clear however there are clear crackles in the upper lobes more so on the left compared to the right and these are very nicely appreciated upon auscultating the anterior aspect of the chest. Posteriorly, the lungs are clear.. Cardiac exam reveals the PMI to be normally sized and situated. Rhythm is regular. First and second heart sounds normal. No murmurs, rubs or gallops. Abdominal exam reveals normal bowel sounds, no masses, no organomegaly and no aortic enlargement. Extremities are nonedematous and both femoral and pedal pulses are normal. Results - Laboratory Findings CBC and BMP: 12/25/16 05:47 12/25/16 05:47 PT/INR, D-dimer PT 10.2 sec (9.0-12.0) 12/23/16 14:10 INR 1.0 (<1.1) 12/23/16 14:10 Abnormal lab findings: Abnormal Labs 12/23/16 12/23/16 12/23/16 14:10 14:10 20:47 WBC Neutrophils # 9.3 H Lymphocytes # 0.6 L Carbon Dioxide 21 L Glucose 119 H POC Glucose (mg/dL) 194 H AST 48 H Urine Blood Urine RBC 12/23/16 12/24/16 12/24/16 21:15 05:43 12:12 WBC Neutrophils # Lymphocytes # Carbon Dioxide Glucose POC Glucose (mg/dL) 138 H 131 H AST Urine Blood Trace H Urine RBC 6 H 12/24/16 12/24/16 12/25/16 17:04 21:19 05:47 WBC 14.4 H Neutrophils # 12.6 H Lymphocytes # Carbon Dioxide Glucose POC Glucose (mg/dL) 188 H 111 H AST Urine Blood Urine RBC 12/25/16 12/25/16 12/25/16 05:47 06:51 11:45 WBC Neutrophils # Lymphocytes # Carbon Dioxide Glucose 140 H POC Glucose (mg/dL) 127 H 176 H AST 45 H Urine Blood Urine RBC - Diagnostic Findings Chest x-ray: image reviewed Assessment and Plan Plan: Assessment 1 bilateral upper lobe pneumonia, left more than right, failed outpatient treatment with a combination of Zithromax and Rocephin that was offered to this patient by her primary care physician. Meanwhile, the patient's clinical condition got worse and for that reason she was hospitalized with an acute hypoxic respiratory failure increased shortness of breath. CAT scan of the chest shows ground glass upper lobe changes which with typically suggest atypical pneumonias and the possibilities would include Legionella, Mycoplasma, Chlamydia, or viral pneumonias. 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 Acute chemical exposure/chemical pneumonitis is felt to be less likely. Aspiration is obviously less likely. 2 acute hypoxic respiratory failure, improving 3 shortness of breath secondary to above 4 exercise-induced asthma currently inactive in stable 5 nasal polyposis 6 hypothyroidism Plan Check sputum Gram stain and culture. Check a Legionella urine antigen. Check mycoplasma antibodies. Check blood cultures. Change antibiotics knowing that the patient has not responded to combination of Rocephin and Zithromax. I would suggest putting this patient a combination of Levaquin and Zosyn and vitamin incentive spirometer and repeat a chest x-ray with the next 24-48 hours. Meanwhile it's also prudent to add Solu-Medrol to help her recover from the pneumonia and this will hopefully treat any form of chemical pneumonitis. The patient will be followed very closely. Bronchoscopy only if she fails to respond. We'll continue to follow.
[2016-12-25] MEDS: LEVOFLOXACIN 750MG-D5W PMX 750 MG in DEXTROSE/WATER 1 150ML.BAG IVPB SCH (14:49)
[2016-12-25] MEDS: ACETAMINOPHEN TAB 325 MG TAB PO PRN (14:59)
[2016-12-25 15:12] VITALS: BMI 34.9
--- NOTE | 2016-12-25 16:01 | P.PN ---
Subjective Principal diagnosis: Bilateral pneumonia This is a female presented to the emergency room with symptoms of body aches, fever and shortness of breath. She was found to have bilateral pneumonia which she is currently receiving treatment for. Echocardiogram with Doppler study was performed which revealed a normal ejection fraction. Patient seen and examined today, still persists to have a cough. She is afebrile. Blood pressure 122/60 heart rate in 60s. Objective - Vital Signs Vital signs: Vital Signs Temp 97.7 F 12/25/16 14:54 Pulse 80 12/25/16 15:43 Resp 18 12/25/16 14:54 BP 122/67 12/25/16 14:54 Pulse Ox 94 L 12/25/16 14:54 Intake & Output 12/24/16 12/25/16 12/25/16 18:59 06:59 18:59 Intake Total 416 300 286 Output Total 1600 400 Balance -1184 -100 286 Weight 95.2 kg 95.2 kg Intake: IV 250 Azithromycin 500 mg In 250 Sodium Chloride 0.9% 250 ml @ 125 mls/hr IVPB DAILY@1800 [facility] Rx#: [id number] Intake, IV Titration 50 50 Amount cefTRIAXone 1,000 mg In 50 50 Sodium Chloride 0.9% 50 ml @ 100 mls/hr IVPB Q24HR [facility] Rx#:[id number] Oral 416 236 Output: Urine 1600 400 Other: Voiding Method Toilet Toilet # Voids 0 # Bowel Movements 0 - Exam PHYSICAL EXAMINATION: HEENT: Head is atraumatic, normocephalic. Pupils equal, round. Neck is supple. There is no elevated jugular venous pressure. HEART EXAMINATION: Heart S1, S2 normal. No murmur or gallop heard. CHEST EXAMINATION: Lungs are clear with crackles left lung base. ABDOMEN: Soft, nontender. Bowel sounds are heard. No organomegaly noted. EXTREMITIES: 2+ peripheral pulses with no evidence of peripheral edema and no calf tenderness noted. NEUROLOGIC patient is awake, alert and oriented -3. . - Labs CBC & Chem 7: 12/25/16 05:47 12/25/16 05:47 Labs: Abnormal Lab Results - Last 24 Hours (Table) 12/24/16 12/24/16 12/25/16 Range/Units 17:04 21:19 05:47 WBC 14.4 H (3.8-10.6) k/uL Neutrophils # 12.6 H (1.3-7.7) k/uL Glucose (74-99) mg/dL POC Glucose (mg/dL) 188 H 111 H (75-99) mg/dL AST (14-36) U/L 12/25/16 12/25/16 12/25/16 Range/Units 05:47 06:51 11:45 WBC (3.8-10.6) k/uL Neutrophils # (1.3-7.7) k/uL Glucose 140 H (74-99) mg/dL POC Glucose (mg/dL) 127 H 176 H (75-99) mg/dL AST 45 H (14-36) U/L Microbiology - Last 24 Hours (Table) 12/23/16 14:10 Group A Strep Throat Culture - Final Throat 12/24/16 21:26 Sputum Culture - Preliminary Sputum 12/23/16 16:45 Urine Culture - Final Urine,Voided 12/23/16 14:10 Blood Culture - Preliminary Blood No Growth after 24 hours Assessment and Plan (1) Pneumonia Status: Acute (2) Asthma Status: Acute (3) Hypothyroid Status: Acute Plan: From cardiology's perspective, Echo cardiac gram with Doppler study revealed normal left ventricular systolic function. We will follow this patient with you now on an as-needed basis only please don't hesitate to call with any questions. DNP note has been reviewed, I agree with a documented findings and plan of care. Patient was seen and examined.
[2016-12-25] MEDS: PIPERACILLIN-TAZOBACTAM 3.375 GM in DEXTROSE/WATER 1 50ML.BAG IVPB SCH ×2 (16:27→23:14)
[2016-12-25 16:55] LABS: Glucose,Whole Blood 179 mg/dL (75-99)
--- NOTE | 2016-12-25 17:38 | PN ---
DATE OF SERVICE: 12/25/2016 This 36-year-old woman admitted with shortness of breath and acute bronchial asthma acute exacerbation, being closely monitored. Dr. Alejandro's evaluation is in progress. No chest pain, no palpitations. No fever. On exam, alert and oriented x3. Pulse 72, blood pressure 124/64, respirations 17, temperature normal. Pulse ox 99% on 2-L. HEENT: Conjunctivae normal. NECK: No jugular venous distention. CARDIOVASCULAR: S1 and S2. RESPIRATORY: Breath sounds diminished at the bases. Bilateral scattered rhonchi and crackles. Expiratory wheezing present. ABDOMEN: Soft, nontender. LEGS: No edema, no swelling. NERVOUS SYSTEM: No focal deficits. LABS: WBC 14, hemoglobin is 13.5, glucose 140. AST is 45. ASSESSMENT: 1. Acute bronchial asthma, acute exacerbation with bilateral bronchopneumonia with acute hypoxic respiratory failure as well as sepsis present on admission. 2. Increased random blood sugar. 3. Increased AST, mild. 4. History of hypothyroidism. 5. History of exercise-induced asthma. 6. History adenoidectomy. 7. History of cholecystectomy. 8. Remote history of nicotine dependence. 9. History of anxiety, not otherwise specified. 10. Increased WBC, possibly secondary to steroids. 11. Increased AST. RECOMMENDATIONS AND DISCUSSION: In this 36-year-old woman who presented with multiple complex medical issues, will monitor the patient closely. Continue the current medications, symptomatic treatment. Continue the broad-spectrum IV antibiotics. Continue with the bronchodilators, IV steroids. Monitor blood sugars closely. Symptomatic treatment. Dr. Alejandro is following the patient. Further recommendations to follow. Will obtain the culture. Also recommend mycoplasma as well as Legionella evaluation also.
[2016-12-25] MEDS: SODIUM CHLORIDE 0.9% 1,000 ML IV SCH (18:53)
[2016-12-25] MEDS ORDERED: ALBUTEROL NEB (CONC) 2.5 MG/0.5 ML INHALATION SCH (20:00)
[2016-12-25 20:44] LABS: Glucose,Whole Blood 148 mg/dL (75-99)
[2016-12-25] MEDS: PROMETHAZ-COD 6.25-10 MG/5 ML 5 ML CUP PO PRN (20:53)
[2016-12-25] MEDS: ALPRAZolam 0.25 MG TAB PO PRN (23:05)
[2016-12-26] MEDS: methylPREDNISolone SOD SUCCI 125 MG/2 ML VIAL IV SCH ×4 (06:54→23:27)
[2016-12-26] MEDS: LEVOTHYROXINE 125 MCG TAB PO SCH (06:54)
[2016-12-26] MEDS: IPRATROPIUM 0.5 MG/2.5 ML NEBU INHALATION SCH ×3 (07:00→19:29)
[2016-12-26] MEDS: BUDESONIDE 1 MG/2 ML NEBU INHALATION SCH ×2 (07:00→19:29)
[2016-12-26] MEDS: LEVALBUTEROL NEB (CONC) 1.25 MG/0.5 ML AMP INHALATION SCH ×3 (07:00→19:29)
[2016-12-26] MEDS: FORMOTEROL FUMARATE 20 MCG/2 ML NEBU INHALATION SCH ×2 (07:00→19:29)
[2016-12-26 07:14] LABS: Glucose,Whole Blood 124 mg/dL (75-99)
[2016-12-26] MEDS: INSULIN LISPRO (humaLOG) 300 UNIT/3 ML VIAL SQ SCH ×4 (07:29→21:14)
[2016-12-26] MEDS: PIPERACILLIN-TAZOBACTAM 3.375 GM in DEXTROSE/WATER 1 50ML.BAG IVPB SCH ×3 (08:06→23:26)
[2016-12-26] MEDS: ASPIRIN 325 MG TAB PO SCH (08:06)
[2016-12-26] MEDS: PANTOPRAZOLE 40 MG TABLET PO SCH (08:06)
[2016-12-26] MEDS: ENOXAPARIN 40 MG/0.4 ML SYRINGE SQ SCH (08:06)
[2016-12-26 08:11] LABS: Basophils % (A) 0 %; CH 30.9; CHCM 33.6; Eosinophils % (A) 0 %; HCT 40.1 % (34.0-46.0); HDW 2.49; HGB 13.5 gm/dL (11.4-16.0); Luc # (Auto) 0.35; Luc % (Auto) 3; Lymphocytes # (A) 1.2 k/uL (1.0-4.8); Lymphocytes % (A) 10 %; MCHC 33.6 g/dL (31.0-37.0); MCV 92.3 fL (80.0-100.0); Mean Platelet Volume 7.7; Monocytes # (A) 0.4 k/uL (0-1.0); Monocytes % (A) 3 %; Neutrophils # (A) 10.2 k/uL (1.3-7.7); Neutrophils % (A) 84 %; RBC 4.34 m/uL (3.80-5.40); RDW 13.4 % (11.5-15.5); WBC 12.2 k/uL (3.8-10.6); WBC (Perox) 12.91
[2016-12-26 08:28] LABS: ALT 44 U/L (9-52); AST 37 U/L (14-36); Alkaline Phosphatase 68 U/L (38-126); Anion Gap 13 mmol/L; Blood Urea Nitrogen 21 mg/dL (7-17); Calcium 9.2 mg/dL (8.4-10.2); Carbon Dioxide 26 mmol/L (22-30); Chloride 101 mmol/L (98-107); Glucose 142 mg/dL (74-99); Non-African American GFR(MDRD) >60 (>60 ml/min/1.73 sqM); Potassium 3.7 mmol/L (3.5-5.1); Sodium 140 mmol/L (137-145); Total Bilirubin 0.6 mg/dL (0.2-1.3); Total Protein 6.6 g/dL (6.3-8.2)
--- NOTE | 2016-12-26 10:52 | P.PN ---
Subjective Principal diagnosis: Patient states some improvement today. Continues with wheeze and crackles to left anterior. Discussed case with Dr. Alejandro will do chest x-ray in the morning possible bronchoscopic tomorrow Objective - Vital Signs Vital signs: Vital Signs Temp 96.6 F L 12/26/16 07:00 Pulse 96 12/26/16 07:27 Resp 18 12/26/16 07:00 BP 119/64 12/26/16 07:00 Pulse Ox 92 L 12/26/16 07:03 Intake & Output 12/25/16 12/26/16 12/26/16 18:59 06:59 18:59 Intake Total 486 Balance 486 Weight 95.2 kg 95.5 kg Intake: Intake, IV Titration 50 Amount cefTRIAXone 1,000 mg In 50 Sodium Chloride 0.9% 50 ml @ 100 mls/hr IVPB Q24HR [facility] Rx#:[id number] Oral 436 Other: Voiding Method Toilet Toilet # Voids 1 - Constitutional General appearance: Present: mild distress - EENT Eyes: Present: PERRLA Ears: bilateral: normal - Neck Neck: Present: normal ROM - Respiratory Respiratory: left: rales, bilateral: wheezing - Cardiovascular Rhythm: regular - Gastrointestinal General gastrointestinal: Present: soft - Integumentary Integumentary: Present: normal - Neurologic Neurologic: Present: CNII-XII intact - Musculoskeletal Musculoskeletal: Present: generalized weakness - Psychiatric Psychiatric: Present: A&O x's 3, appropriate affect, intact judgment & insight - Labs CBC & Chem 7: 12/26/16 07:35 12/26/16 07:35 Labs: Abnormal Lab Results - Last 24 Hours (Table) 12/25/16 12/25/16 12/25/16 Range/Units 11:45 16:27 20:42 WBC (3.8-10.6) k/uL Neutrophils # (1.3-7.7) k/uL BUN (7-17) mg/dL Glucose (74-99) mg/dL POC Glucose (mg/dL) 176 H 179 H 148 H (75-99) mg/dL AST (14-36) U/L 12/26/16 12/26/16 12/26/16 Range/Units 06:54 07:35 07:35 WBC 12.2 H (3.8-10.6) k/uL Neutrophils # 10.2 H (1.3-7.7) k/uL BUN 21 H (7-17) mg/dL Glucose 142 H (74-99) mg/dL POC Glucose (mg/dL) 124 H (75-99) mg/dL AST 37 H (14-36) U/L Microbiology - Last 24 Hours (Table) 12/23/16 14:10 Blood Culture - Preliminary Blood No Growth after 48 hours 12/24/16 21:26 Gram Stain - Preliminary Sputum Sputum Culture - Preliminary 12/23/16 14:10 Group A Strep Throat Culture - Final Throat - Imaging and Cardiology Chest x-ray: report reviewed CT scan - chest: report reviewed Assessment and Plan Plan: Assessment acute bronchial asthma exacerbation with some bronchial pneumonia acute hypoxia respiratory failure as well as sepsis on admission history of hypothyroidism history of asthma history of anxiety Plan Cardiology is signed off for pulmonary edema Pulmonology continues to follow Dr. Alejandro Chest x-ray in a.m. Continued antibiotics of Levaquin and Zosyn Possible bronchoscopy in a.m.
--- NOTE | 2016-12-26 12:08 | P.PN ---
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 The patient was in a good state of health until early last week. Apparently, while doing her home. On an elderly patient, she got exposed to what she thinks to be urine/ stool/contaminated material at the patient's home. This exposure occurred approximately 10 days ago. 2 days following that she started having generalized body aches and thickness and feeling weak and ill and hot and cold. She continue to take Motrin on and off which made her sweat and following that she started having increased cough and shortness of breath. For that reason she presented emergency department twice on and 12/22/2016 and in both visits the patient had a chest x-ray that did not show any pneumonias. She finally came back to the emergency department on 12/24/2016 and she was found to have upper lobe groundglass pulmonary changes. This was further confirmed by computed tomography scan of the chest that showed groundglass infiltration of the upper lobes more so in the left upper lobe area. She is currently less hypoxic. She is on 2 L of oxygen and her pulse is up to 95%. Earlier today she was 86% on room air and 91% on 2 L. With the breathing treatments she is currently producing some yellowish sputum. No wheezes. She has history of bronchial asthma. She has undergone previous sinus surgery for nasal polyps. No recurrent pneumonias. No immunosuppression. No maintenance inhalers for asthma and she's been essentially using pro-air for exercise- induced asthma and she takes pro-air only prior to exercise. No hemoptysis. No swelling in lower extremities. No skin rashes. No upper airway irritation from any potential exposure of any pneumothorax it or noxious materials. She is currently on a combination of Rocephin and Zithromax. Note that the patient did visit her primary care physician and she was seen by the nurse practitioner she was given a course of Z-Gokul and a Medrol Dosepak which she completed prior to her hospital admission. She started the Zithromax on 12/18 and she was given also a shot of Rocephin on 12/20/2016 On 12/26/2016 I'm seeing this patient in follow-up. The patient is slightly better compared to yesterday. No fever or chills. Still having a congested cough. No hemoptysis. No pleurisy. No chest pain. She is on Levaquin and Zosyn and she is also on IV Solu-Medrol. Legionella urine antigen is negative. Mycoplasma antibodies are still pending. The patient will have a follow-up chest x-ray. If the findings are unchanged we'll consider bronchoscopy on this patient. Discussed the findings with her and will continue to follow. Objective - Vital Signs Vital signs: Vital Signs Temp 96.6 F L 12/26/16 07:00 Pulse 96 12/26/16 07:27 Resp 18 12/26/16 07:00 BP 119/64 12/26/16 07:00 Pulse Ox 92 L 12/26/16 07:03 Intake & Output 12/25/16 12/26/16 12/26/16 18:59 06:59 18:59 Intake Total 486 Balance 486 Weight 95.2 kg 95.5 kg Intake: Intake, IV Titration 50 Amount cefTRIAXone 1,000 mg In 50 Sodium Chloride 0.9% 50 ml @ 100 mls/hr IVPB Q24HR [facility] Rx#:[id number] Oral 436 Other: Voiding Method Toilet Toilet # Voids 1 - Exam The patient appeared well nourished and normally developed. Vital signs as documented. Head exam is unremarkable. No scleral icterus or corneal arcus noted. Neck is without jugular venous distension, thyromegaly, or carotid bruits. Carotid upstrokes are brisk bilaterally. Lungs are clear however there are clear crackles in the upper lobes more so on the left compared to the right and these are very nicely appreciated upon auscultating the anterior aspect of the chest. Posteriorly, the lungs are clear.. Cardiac exam reveals the PMI to be normally sized and situated. Rhythm is regular. First and second heart sounds normal. No murmurs, rubs or gallops. Abdominal exam reveals normal bowel sounds, no masses, no organomegaly and no aortic enlargement. Extremities are nonedematous and both femoral and pedal pulses are normal. - Labs CBC & Chem 7: 12/26/16 07:35 12/26/16 07:35 Labs: Abnormal Lab Results - Last 24 Hours (Table) 12/25/16 12/25/16 12/25/16 Range/Units 11:45 16:27 20:42 WBC (3.8-10.6) k/uL Neutrophils # (1.3-7.7) k/uL BUN (7-17) mg/dL Glucose (74-99) mg/dL POC Glucose (mg/dL) 176 H 179 H 148 H (75-99) mg/dL AST (14-36) U/L 12/26/16 12/26/16 12/26/16 Range/Units 06:54 07:35 07:35 WBC 12.2 H (3.8-10.6) k/uL Neutrophils # 10.2 H (1.3-7.7) k/uL BUN 21 H (7-17) mg/dL Glucose 142 H (74-99) mg/dL POC Glucose (mg/dL) 124 H (75-99) mg/dL AST 37 H (14-36) U/L Microbiology - Last 24 Hours (Table) 12/23/16 14:10 Blood Culture - Preliminary Blood No Growth after 48 hours 12/24/16 21:26 Gram Stain - Preliminary Sputum Sputum Culture - Preliminary 12/23/16 14:10 Group A Strep Throat Culture - Final Throat Assessment and Plan Plan: Assessment 1 bilateral upper lobe pneumonia, left more than right, failed outpatient treatment with a combination of Zithromax and Rocephin that was offered to this patient by her primary care physician. Meanwhile, the patient's clinical condition got worse and for that reason she was hospitalized with an acute hypoxic respiratory failure increased shortness of breath. CAT scan of the chest shows ground glass upper lobe changes which with typically suggest atypical pneumonias and the possibilities would include Legionella, Mycoplasma, Chlamydia, or viral pneumonias. 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 Acute chemical exposure/chemical pneumonitis is felt to be less likely. Aspiration is obviously less likely. 2 acute hypoxic respiratory failure, improving 3 shortness of breath secondary to above 4 exercise-induced asthma currently inactive in stable 5 nasal polyposis 6 hypothyroidism Plan Continue same treatment. Follow-up chest x-ray in the morning. If the findings are unchanged or worse we'll proceed with bronchoscopy. We'll follow. Clinically slightly better compared to yesterday.
[2016-12-26 12:36] LABS: Glucose,Whole Blood 146 mg/dL (75-99)
[2016-12-26] MEDS: LEVOFLOXACIN 750MG-D5W PMX 750 MG in DEXTROSE/WATER 1 150ML.BAG IVPB SCH (14:30)
[2016-12-26 17:27] LABS: Glucose,Whole Blood 171 mg/dL (75-99)
[2016-12-26] MEDS: SODIUM CHLORIDE 0.9% 1,000 ML IV SCH (18:02)
[2016-12-26 20:52] LABS: Glucose,Whole Blood 221 mg/dL (75-99)
[2016-12-26] MEDS: ALPRAZolam 0.25 MG TAB PO PRN (21:58)
[2016-12-27] MEDS: methylPREDNISolone SOD SUCCI 125 MG/2 ML VIAL IV SCH ×2 (06:46→12:34)
[2016-12-27] MEDS: LEVOTHYROXINE 125 MCG TAB PO SCH (06:47)
[2016-12-27] MEDS: BUDESONIDE 1 MG/2 ML NEBU INHALATION SCH (06:58)
[2016-12-27] MEDS: LEVALBUTEROL NEB (CONC) 1.25 MG/0.5 ML AMP INHALATION SCH ×2 (06:58→13:13)
[2016-12-27] MEDS: IPRATROPIUM 0.5 MG/2.5 ML NEBU INHALATION SCH ×2 (06:58→13:13)
[2016-12-27] MEDS: FORMOTEROL FUMARATE 20 MCG/2 ML NEBU INHALATION SCH (06:58)
[2016-12-27 06:59] LABS: Glucose,Whole Blood 126 mg/dL (75-99)
[2016-12-27 07:35] VITALS: BP 108/58; TEMP 97.1
[2016-12-27 08:06] LABS: Basophils # (A) 0.1 k/uL (0-0.2); Basophils % (A) 0 %; CH 30.6; CHCM 34.1; Eosinophils % (A) 0 %; HCT 38.2 % (34.0-46.0); HDW 2.51; HGB 13.1 gm/dL (11.4-16.0); Luc # (Auto) 0.38; Luc % (Auto) 3; Lymphocytes # (A) 1.4 k/uL (1.0-4.8); Lymphocytes % (A) 11 %; MCH 30.9 pg (25.0-35.0); MCHC 34.3 g/dL (31.0-37.0); Mean Platelet Volume 7.6; Monocytes # (A) 0.4 k/uL (0-1.0); Monocytes % (A) 3 %; Neutrophils # (A) 10.5 k/uL (1.3-7.7); Neutrophils % (A) 82 %; RBC 4.25 m/uL (3.80-5.40); RDW 13.4 % (11.5-15.5); WBC 12.8 k/uL (3.8-10.6); WBC (Perox) 12.74
--- NOTE | 2016-12-27 08:11 | XR ---
EXAMINATION TYPE: XR chest 2V DATE OF EXAM: 12/27/2016 HISTORY: progress pneumonia. REFERENCE: Previous study dated 12/24/2016. FINDINGS: Vascular congestion has resolved. The lungs are clear. Pleural spaces are clear. The heart is not enlarged. IMPRESSION: NO ACUTE INTRATHORACIC ABNORMALITY.
[2016-12-27] MEDS: PIPERACILLIN-TAZOBACTAM 3.375 GM in DEXTROSE/WATER 1 50ML.BAG IVPB SCH (08:30)
[2016-12-27] MEDS: INSULIN LISPRO (humaLOG) 300 UNIT/3 ML VIAL SQ SCH ×2 (08:31→12:36)
[2016-12-27] MEDS: PANTOPRAZOLE 40 MG TABLET PO SCH (08:31)
[2016-12-27 08:38] LABS: ALT 79 U/L (9-52); AST 40 U/L (14-36); Alkaline Phosphatase 62 U/L (38-126); Anion Gap 9 mmol/L; Blood Urea Nitrogen 19 mg/dL (7-17); Calcium 9.2 mg/dL (8.4-10.2); Carbon Dioxide 29 mmol/L (22-30); Chloride 102 mmol/L (98-107); Glucose 138 mg/dL (74-99); Non-African American GFR(MDRD) >60 (>60 ml/min/1.73 sqM); Potassium 4.1 mmol/L (3.5-5.1); Sodium 140 mmol/L (137-145); Total Bilirubin 0.6 mg/dL (0.2-1.3); Total Protein 6.1 g/dL (6.3-8.2)
[2016-12-27] MEDS: ENOXAPARIN 40 MG/0.4 ML SYRINGE SQ SCH (10:05)
[2016-12-27] MEDS: ASPIRIN 325 MG TAB PO SCH (10:05)
[2016-12-27 10:52] VITALS: RESP 18
--- NOTE | 2016-12-27 11:38 | P.PN ---
Subjective Some noted improvement to patient. Chest x-ray was negative. Persists with arousals to the left upper lung with rhonchi. Having difficulty clearing secretions area patient is nothing by mouth at this time for possible bronchoscopy Objective - Vital Signs Vital signs: Vital Signs Temp 97.1 F L 12/27/16 07:00 Pulse 92 12/27/16 07:21 Resp 18 12/27/16 08:00 BP 108/58 12/27/16 07:00 Pulse Ox 94 L 12/27/16 07:00 Intake & Output 12/26/16 12/27/16 12/27/16 18:59 06:59 18:59 Intake Total 480 Balance 480 Weight 97.5 kg Intake: Oral 480 Other: Voiding Method Toilet # Voids 1 1 - Constitutional General appearance: Present: mild distress - EENT Eyes: Present: PERRLA Ears: bilateral: normal - Neck Neck: Present: normal ROM - Respiratory Respiratory: left: rales, bilateral: wheezing - Cardiovascular Rhythm: regular - Integumentary Integumentary: Present: normal - Neurologic Neurologic: Present: CNII-XII intact - Musculoskeletal Musculoskeletal: Present: generalized weakness - Psychiatric Psychiatric: Present: A&O x's 3, appropriate affect, intact judgment & insight - Labs CBC & Chem 7: 12/27/16 07:32 12/27/16 07:32 Labs: Abnormal Lab Results - Last 24 Hours (Table) 12/26/16 12/26/16 12/26/16 Range/Units 12:30 17:10 20:51 WBC (3.8-10.6) k/uL Neutrophils # (1.3-7.7) k/uL BUN (7-17) mg/dL Glucose (74-99) mg/dL POC Glucose (mg/dL) 146 H 171 H 221 H (75-99) mg/dL AST (14-36) U/L ALT (9-52) U/L Total Protein (6.3-8.2) g/dL Albumin (3.5-5.0) g/dL 12/27/16 12/27/16 12/27/16 Range/Units 06:58 07:32 07:32 WBC 12.8 H (3.8-10.6) k/uL Neutrophils # 10.5 H (1.3-7.7) k/uL BUN 19 H (7-17) mg/dL Glucose 138 H (74-99) mg/dL POC Glucose (mg/dL) 126 H (75-99) mg/dL AST 40 H (14-36) U/L ALT 79 H (9-52) U/L Total Protein 6.1 L (6.3-8.2) g/dL Albumin 3.4 L (3.5-5.0) g/dL Microbiology - Last 24 Hours (Table) 12/23/16 14:10 Blood Culture - Preliminary Blood No Growth after 72 hours - Imaging and Cardiology Chest x-ray: report reviewed Assessment and Plan Plan: Assessment Acute bronchial asthma with exacerbation left-sided of pneumonia acute hypoxic respiratory failure as well as sepsis on admission History of hypothyroidism history of exercise-induced asthma Anxiety disorder Plan Cardiology has signed off regarding pulmonary edema chest x-ray clear Continued consultation with pulmonology Dr. Alejandro possible bronchoscopy today
[2016-12-27 12:09] LABS: Glucose,Whole Blood 138 mg/dL (75-99)
--- NOTE | 2016-12-27 13:08 | P.DS ---
Providers Date of admission: 12/23/16 16:51 Expected date of discharge: 12/27/16 Attending physician: Aly Higgins Consults: 12/23/16 16:48 Consult Physician Stat Consulting Provider: Janki Montez Consult Reason/Comments: Pulmonary edemap Do you want consulting provider notified?: Yes 12/24/16 14:41 Consult Physician Stat Consulting Provider: Santiago Bowens Consult Reason/Comments: current respiratory status, decrease o2, no home 02. Do you want consulting provider notified?: Already Contacted Primary care physician: Aly Higgins Hospital Course: 36-year-old female admitted to the emergency room with failed outpatient for persistent cough. Was seen emergency room times 2. Patient was initially evaluated for pulmonary edema per cardiology that was ruled out. Was evaluated by pulmonology for . Awaiting lab for atypical pneumonia. Assessment acute bronchial asthma with acute exacerbation pneumonia with acute hypoxic respiratory failure as well as sepsis on admission history of hypothyroidism anxiety disorder Plan continue Levaquin 750 mg prednisone tape albuterol for updraft close follow up with family physician Dr. Aly Higgins and Dr. Alejandro Patient Condition at Discharge: Good Plan - Discharge Summary New Discharge Prescriptions: No Action Levothyroxine Sodium [Synthroid] 125 mcg PO DAILY Albuterol Inhaler [Ventolin Hfa Inhaler] 1 - 2 puff INHALATION RT-Q6H PRN PRN Reason: sob Albuterol Nebulized [Ventolin Nebulized] 2.5 mg INHALATION Q4H PRN #25 nebu PRN Reason: difficulty in breathing predniSONE 50 mg PO DAILY #5 tab guaiFENesin [Mucinex] 600 mg PO BID PRN PRN Reason: Congestion Promethaz-Cod 6.25-10 mg/5 ml [Phenergan with Codeine] 5 ml PO Q6H PRN PRN Reason: Cough Discharge Medication List Albuterol Inhaler [Ventolin Hfa Inhaler] 1 - 2 puff INHALATION RT-Q6H PRN [History] Albuterol Nebulized [Ventolin Nebulized] 2.5 mg INHALATION Q4H PRN #25 nebu [Rx] Levothyroxine Sodium [Synthroid] 125 mcg PO DAILY 12/22/16 [History] predniSONE 50 mg PO DAILY #5 tab 12/22/16 [Rx] Promethaz-Cod 6.25-10 mg/5 ml [Phenergan with Codeine] 5 ml PO Q6H PRN 12/23/16 [History] guaiFENesin [Mucinex] 600 mg PO BID PRN 12/23/16 [History] Follow up Appointment(s)/Referral(s): Aly Higgins MD [Primary Care Provider] - 3 Days Patient Instructions/Handouts: Pulmonary Edema (DC) Activity/Diet/Wound Care/Special Instructions: Cardiac diet. Discharge Disposition: HOME SELF-CARE
[2016-12-27 13:29] VITALS: PULSE 90
--- NOTE | 2016-12-27 15:01 | P.PN ---
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 The patient was in a good state of health until early last week. Apparently, while doing her home. On an elderly patient, she got exposed to what she thinks to be urine/ stool/contaminated material at the patient's home. This exposure occurred approximately 10 days ago. 2 days following that she started having generalized body aches and thickness and feeling weak and ill and hot and cold. She continue to take Motrin on and off which made her sweat and following that she started having increased cough and shortness of breath. For that reason she presented emergency department twice on and 12/22/2016 and in both visits the patient had a chest x-ray that did not show any pneumonias. She finally came back to the emergency department on 12/24/2016 and she was found to have upper lobe groundglass pulmonary changes. This was further confirmed by computed tomography scan of the chest that showed groundglass infiltration of the upper lobes more so in the left upper lobe area. She is currently less hypoxic. She is on 2 L of oxygen and her pulse is up to 95%. Earlier today she was 86% on room air and 91% on 2 L. With the breathing treatments she is currently producing some yellowish sputum. No wheezes. She has history of bronchial asthma. She has undergone previous sinus surgery for nasal polyps. No recurrent pneumonias. No immunosuppression. No maintenance inhalers for asthma and she's been essentially using pro-air for exercise- induced asthma and she takes pro-air only prior to exercise. No hemoptysis. No swelling in lower extremities. No skin rashes. No upper airway irritation from any potential exposure of any pneumothorax it or noxious materials. She is currently on a combination of Rocephin and Zithromax. Note that the patient did visit her primary care physician and she was seen by the nurse practitioner she was given a course of Z-Gokul and a Medrol Dosepak which she completed prior to her hospital admission. She started the Zithromax on 12/18 and she was given also a shot of Rocephin on 12/20/2016 On 12/26/2016 I'm seeing this patient in follow-up. The patient is slightly better compared to yesterday. No fever or chills. Still having a congested cough. No hemoptysis. No pleurisy. No chest pain. She is on Levaquin and Zosyn and she is also on IV Solu-Medrol. Legionella urine antigen is negative. Mycoplasma antibodies are still pending. The patient will have a follow-up chest x-ray. If the findings are unchanged we'll consider bronchoscopy on this patient. Discussed the findings with her and will continue to follow. On 12/27/2016, the patient is feeling better. The patient continues to have some congested cough. No selective sputum production however. On today's chest x-ray there is improvement in the pulmonary infiltrates that were described in the upper lobes bilaterally. Pulse ox is improved and the patient' s pulse ox on room air is still ranging between 90 and 92%. No significant desaturation with activity. On and off the patient is coughing and she is utilizing a combination of promethazine and codeine at home.. The hospital the patient is on a combination of Zosyn and Levaquin. The patient is on IV Solu Medrol in addition. I do not see the need for a bronchoscopy as long as the patient is clinically improving and the chest x-ray findings are also improved. Objective - Vital Signs Vital signs: Vital Signs Temp 97.1 F L 12/27/16 07:00 Pulse 90 12/27/16 13:28 Resp 18 12/27/16 08:00 BP 108/58 12/27/16 07:00 Pulse Ox 94 L 12/27/16 07:00 Intake & Output 12/26/16 12/27/16 12/27/16 18:59 06:59 18:59 Intake Total 480 Balance 480 Weight 97.5 kg Intake: Oral 480 Other: Voiding Method Toilet # Voids 1 1 - Exam The patient appeared well nourished and normally developed. Vital signs as documented. Head exam is unremarkable. No scleral icterus or corneal arcus noted. Neck is without jugular venous distension, thyromegaly, or carotid bruits. Carotid upstrokes are brisk bilaterally. Lungs are clear however there are clear crackles in the upper lobes more so on the left compared to the right and these are very nicely appreciated upon auscultating the anterior aspect of the chest. Posteriorly, the lungs are clear.. Cardiac exam reveals the PMI to be normally sized and situated. Rhythm is regular. First and second heart sounds normal. No murmurs, rubs or gallops. Abdominal exam reveals normal bowel sounds, no masses, no organomegaly and no aortic enlargement. Extremities are nonedematous and both femoral and pedal pulses are normal. - Labs CBC & Chem 7: 12/27/16 07:32 12/27/16 07:32 Labs: Abnormal Lab Results - Last 24 Hours (Table) 12/26/16 12/26/16 12/27/16 Range/Units 17:10 20:51 06:58 WBC (3.8-10.6) k/uL Neutrophils # (1.3-7.7) k/uL BUN (7-17) mg/dL Glucose (74-99) mg/dL POC Glucose (mg/dL) 171 H 221 H 126 H (75-99) mg/dL AST (14-36) U/L ALT (9-52) U/L Total Protein (6.3-8.2) g/dL Albumin (3.5-5.0) g/dL 12/27/16 12/27/16 12/27/16 Range/Units 07:32 07:32 12:07 WBC 12.8 H (3.8-10.6) k/uL Neutrophils # 10.5 H (1.3-7.7) k/uL BUN 19 H (7-17) mg/dL Glucose 138 H (74-99) mg/dL POC Glucose (mg/dL) 138 H (75-99) mg/dL AST 40 H (14-36) U/L ALT 79 H (9-52) U/L Total Protein 6.1 L (6.3-8.2) g/dL Albumin 3.4 L (3.5-5.0) g/dL Microbiology - Last 24 Hours (Table) 12/24/16 21:26 Gram Stain - Final Sputum Sputum Culture - Final 12/23/16 14:10 Blood Culture - Preliminary Blood No Growth after 72 hours Assessment and Plan Plan: Assessment 1 bilateral upper lobe pneumonia, left more than right, failed outpatient treatment with a combination of Zithromax and Rocephin that was offered to this patient by her primary care physician. Meanwhile, the patient's clinical condition got worse and for that reason she was hospitalized with an acute hypoxic respiratory failure increased shortness of breath. CAT scan of the chest shows ground glass upper lobe changes which with typically suggest atypical pneumonias and the possibilities would include Legionella, Mycoplasma, Chlamydia, or viral pneumonias. 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 Acute chemical exposure/chemical pneumonitis is felt to be less likely. Aspiration is obviously less likely. 2 acute hypoxic respiratory failure, improving 3 shortness of breath secondary to above 4 exercise-induced asthma currently inactive in stable 5 nasal polyposis 6 hypothyroidism Plan No microbiologic diagnoses been established. The patient on a combination of Zosyn and Levaquin. Clinically improved. Pulse ox improved. Chest x-ray improved. The patient can discharge him on Levaquin 750 mg for a total of 1 week. The patient can be discharged home in a prednisone burst taper starting with 40 mg. The patient will continue using promethazine with codeine at home for cough and albuterol about treatments around the clock. The patient was seen back in the office in a week's time to discuss her progress and obtain a follow-up chest x-ray.
[2016-12-29 05:21] LABS: Mycoplasma IgG Antibody (EIA) 1.15 INDEX (<=0.90); Mycoplasma IgM Antibody 0.9 INDEX (<=0.90)
== END 2016-12-27 13:51 | disposition home or self-care (01) | DRG 871 ==
LOC: EC 13:42 → 4MS4W 16:51 → 6SEL 21:07 → 4MS4W 12-25 18:04
PROVIDERS: ADMIT Family Medicine; ATTEND Family Medicine
DX: A41.9 Sepsis, unspecified organism (principal); J18.0 Bronchopneumonia, unspecified organism; J96.01 Acute respiratory failure with hypoxia; J45.901 Unspecified asthma with (acute) exacerbation; E03.9 Hypothyroidism, unspecified; Z90.49 Acquired absence of other specified parts of digestive tract; F41.9 Anxiety disorder, unspecified; Z90.710 Acquired absence of both cervix and uterus; Z87.891 Personal history of nicotine dependence; Z79.52 Long term (current) use of systemic steroids; Z79.899 Other long term (current) drug therapy
CPT/HCPCS: 36415; 71020; 71275; 80053; 81001; 83605; 83880; 84484; 85025; 85610; 85730; 86738; 87040; 87070; 87081; 87086; 87205; 87430; 87449; 87502; 93005; 93306; 94640; 94644; 94760; 96361; 96365; 96367; 96375; 99291

== ENCOUNTER → 2017-04-16 | Outpatient (CLI) | payer MEDICAID | END | disposition home or self-care (01) | LOC: LABWHC1 12:03 | PROVIDERS: ATTEND Physician Assistant | DX: E03.9 Hypothyroidism, unspecified (principal) | CPT/HCPCS: 36415; 84439; 84443 ==

== ENCOUNTER → 2017-07-17 | Outpatient (CLI) | payer MEDICAID ==
[2017-07-17 18:11] LABS: T4, Free (Free Thyroxine) 1.07 ng/dL (0.78-2.19)
== END | disposition home or self-care (01) ==
LOC: LABWHC1 17:09
PROVIDERS: ATTEND Internal Medicine Critical Care Medicine
DX: E03.9 Hypothyroidism, unspecified (principal)
CPT/HCPCS: 36415; 84439; 84443; 84481

== ENCOUNTER 2019-09-10 19:52 | Emergency (ER) | payer MEDICAID ==
--- NOTE | 2019-09-10 20:30 | XR ---
EXAMINATION TYPE: XR chest 2V DATE OF EXAM: 09/10/2019 COMPARISON: Chest x-ray 12/27/2016, 01/04/2017 HISTORY: Cough and fever TECHNIQUE: Frontal and lateral views of the chest are obtained. FINDINGS: There is no focal air space opacity, pleural effusion, or pneumothorax seen. The cardiac silhouette size is within normal limits. The osseous structures are intact. Surgical clips present right upper quadrant. IMPRESSION: No acute cardiopulmonary process.
[2019-09-10] MEDS ORDERED: ACETAMINOPHEN TAB 500 MG TAB PO STA (21:30)
[2019-09-10] MEDS ORDERED: predniSONE 20 MG TAB PO STA (21:53)
[2019-09-10] MEDS ORDERED: ALBUTEROL NEBULIZED 2.5 MG/3 ML INHALATION STA (21:54)
[2019-09-10] MEDS ORDERED: IPRATROPIUM-ALBUTEROL 3 ML NEB INHALATION STA (21:54)
--- NOTE | 2019-09-10 21:57 | ED ---
URI HPI - General Chief Complaint: Upper Respiratory Infection Stated Complaint: Shortness of Breath Time Seen by Provider: 09/10/19 21:19 Source: patient Mode of arrival: ambulatory Limitations: no limitations - History of Present Illness Initial Comments: This patient is a 39-year-old woman who reportedly with history of asthma and chronic sinusitis. She states that going back for number of months she has been having episodes of congestion and wheezing. She states that over the past few days things seemed to be worsening. She is having a nonproductive cough, she is noticing wheezing, and she does feel a tightness in her chest. MD Complaint: nasal congestion, other (shortness of breath) -: week(s) Consistency: constant Improves With: nothing Worsens With: nothing Associated Symptoms: cough, shortness of breath Treatments Prior to Arrival: other - Related Data Home Medications Medication Instructions Recorded Confirmed Albuterol Inhaler [Ventolin Hfa 1 - 2 puff INHALATION RT-Q6H PRN 12/22/16 12/23/16 Inhaler] Levothyroxine Sodium [Synthroid] 125 mcg PO DAILY 12/22/16 12/23/16 Promethaz-Cod 6.25-10 mg/5 ml 5 ml PO Q6H PRN 12/23/16 12/23/16 [Phenergan with Codeine] guaiFENesin [Mucinex] 600 mg PO BID PRN 12/23/16 12/23/16 Previous Rx's Medication Instructions Recorded Albuterol Nebulized [Ventolin 2.5 mg INHALATION Q4H PRN #25 nebu 12/22/16 Nebulized] predniSONE 50 mg PO DAILY #5 tab 12/22/16 Albuterol Nebulized [Ventolin 2.5 mg INHALATION Q4H #50 nebu 09/10/19 Nebulized] predniSONE [Deltasone] 20 mg PO BID #8 tab 09/10/19 Allergies Allergy/AdvReac Type Severity Reaction Status Date / Time bupropion HCl Allergy Severe Rash/Hives Verified 09/10/19 20:11 [From Wellbutrin] Review of Systems ROS Statement: Those systems with pertinent positive or pertinent negative responses have been documented in the HPI. ROS Other: All systems not noted in ROS Statement are negative. Constitutional: Denies: fever ENT: Reports: congestion Respiratory: Reports: cough, dyspnea, wheezes. Denies: hemoptysis Cardiovascular: Denies: chest pain, palpitations, orthopnea, edema, syncope Gastrointestinal: Denies: abdominal pain, vomiting, diarrhea Skin: Denies: rash Neurological: Denies: headache Past Medical History Past Medical History: Asthma, Thyroid Disorder Additional Past Medical History / Comment(s): EXERCISE INDUCED ASTHMA. HYPOTHYROID , and nasal polyps. History of Any Multi-Drug Resistant Organisms: None Reported Past Surgical History: Adenoidectomy, Cholecystectomy, Tonsillectomy Additional Past Surgical History / Comment(s): Nasal polyp removal Past Anesthesia/Blood Transfusion Reactions: Previous Problems w/ Anesthesia, Motion Sickness Additional Past Anesthesia/Blood Transfusion Reaction / Comment(s): HAS CHILLS OR SHAKING WHEN COMING OUT OF ANESTHESIA. PT ADOPTED - LIMITED FAMILY HX. Past Psychological History: Anxiety Smoking Status: Former smoker Past Alcohol Use History: Occasional Past Drug Use History: None Reported - Past Family History Father Family Medical History: Cancer Additional Family Medical History / Comment(s): LUNG CANCER WITH METS Mother Additional Family Medical History / Comment(s): HEART AND LIVER FAILURE General Exam Limitations: no limitations General appearance: alert, in no apparent distress Head exam: Present: atraumatic, normocephalic Eye exam: Present: normal appearance. Absent: scleral icterus, conjunctival injection ENT exam: Present: normal oropharynx Respiratory exam: Present: wheezes. Absent: respiratory distress, rales, rhonchi, stridor, accessory muscle use, decreased breath sounds, prolonged expiratory Cardiovascular Exam: Present: regular rate, normal rhythm, normal heart sounds. Absent: systolic murmur, diastolic murmur, rubs, gallop GI/Abdominal exam: Present: soft. Absent: distended, tenderness, guarding, rebound, rigid, mass Extremities exam: Present: normal inspection, normal capillary refill. Absent: pedal edema, calf tenderness Back exam: Present: normal inspection. Absent: CVA tenderness (R), CVA tenderness (L) Neurological exam: Present: alert Skin exam: Present: warm, dry, intact, normal color. Absent: rash Course Vital Signs 09/10/19 09/10/19 09/10/19 20:08 22:01 22:18 Temperature 102.0 F H Pulse Rate 122 H 105 H 100 Respiratory 24 Rate Blood Pressure 149/90 O2 Sat by Pulse 96 Oximetry Medical Decision Making - Lab Data Lab Results 09/10/19 Range/Units 20:13 Influenza Type A RNA Not Detected (Not Detectd) Influenza Type B (PCR) Not Detected (Not Detectd) Disposition Clinical Impression: Bronchitis Disposition: HOME SELF-CARE Condition: Good Instructions (If sedation given, give patient instructions): Upper Respiratory Infection (ED) Prescriptions: predniSONE [Deltasone] 20 mg PO BID #8 tab Albuterol Nebulized [Ventolin Nebulized] 2.5 mg INHALATION Q4H #50 nebu Is patient prescribed a controlled substance at d/c from ED?: No Referrals: Josias Robertson MD [Primary Care Provider] - 1-2 days
[2019-09-10 23:14] VITALS: BP 116/70; PULSE 91; RESP 18; TEMP 96.6
== END 2019-09-10 23:14 | disposition home or self-care (01) ==
LOC: EC 19:52
DX: J45.909 Unspecified asthma, uncomplicated (principal); E03.9 Hypothyroidism, unspecified; Z87.891 Personal history of nicotine dependence; Z88.8 Allergy status to other drugs, medicaments and biological substances; Z79.890 Hormone replacement therapy; Z79.899 Other long term (current) drug therapy; Z90.89 Acquired absence of other organs; Z82.49 Family history of ischemic heart disease and other diseases of the circulatory system
CPT/HCPCS: 94640; 87502; 71046; 99285; J7512

== ENCOUNTER → 2019-09-16 | Outpatient (CLI) | payer MEDICAID ==
--- NOTE | 2019-09-16 09:35 | CT ---
EXAMINATION TYPE: CT sinus wo con DATE OF EXAM: 09/16/2019 COMPARISON: 11/19/2015 HISTORY: Nasal polyps CT DLP: 525.9 mGycm. Automated Exposure Control for Dose Reduction was Utilized. TECHNIQUE: CT scan of the sinuses is performed without contrast, axial images are obtained, coronal r eformatted images are also reviewed. FINDINGS: There is near complete opacification of the left maxillary sinus and circumferential mucosa l thickening that is severe. On soft tissue windows there is internal hyperdensity in the left maxill ruby sinus. There is mild circumferential mucosal thickening in the right maxillary sinus. No chronic osseous thickening is seen. Severe mucosal thickening is also seen of the ethmoid sinuses extending t o the frontal recesses into the right frontal sinus completely opacifying the right frontal sinus wit h inspissated mild secretions in the left frontal sinus. One of the left-sided sphenoid sinuses displ ays moderate mucosal thickening. Scant mucosal thickening is seen within the remainder of the sphenoi d sinuses. Findings have worsened from the prior. The visualized portions of the middle ear cavities and mastoid air cells are patent and unremarkable. No acute fracture is seen of the visualized osseous structures. There is narrowing of the bilateral ostiomeatal complexes secondary to mucosal thickening despite surgical augmentation. Nasal septum is overall midline. Maxillary spine is intact. No contra bullosa are seen. At least one nasal polyp is s een near the right middle nasal turbinate just lateral to the nasal turbinate measuring 9 mm. Orbits are unremarkable. Visualized portions of the brain are suboptimally viewed given technique. IMPRESSION: 1. Severe circumferential mucosal thickening of the left maxillary sinus with internal high density s uggesting atypical infection such as fungal infection or hemorrhage. 2. Severe mucosal thickening of the ethmoid sinuses and right frontal sinus with obscuration of the r ight frontal recess and narrowing of the bilateral ostiomeatal complexes. 3. At least one nasal polyp lateral to the right middle nasal turbinate measuring 9 mm. 4. Mild mucosal thickening of the sphenoid sinus, left frontal sinus, and right maxillary sinus that are circumferential.
== END | disposition home or self-care (01) ==
LOC: RADCTMAIN 09:05
PROVIDERS: ATTEND Internal Medicine Geriatric Medicine
DX: J34.89 Other specified disorders of nose and nasal sinuses (principal); J33.9 Nasal polyp, unspecified
CPT/HCPCS: 70486

== ENCOUNTER → 2021-06-28 | Outpatient (CLI) | payer MEDICAID, OTHER | END | disposition home or self-care (01) | LOC: LABWHC1 10:52 | PROVIDERS: ATTEND Emergency Medicine | DX: U07.1 COVID-19 (principal) | CPT/HCPCS: 87635 ==

== ENCOUNTER → 2021-07-20 | Outpatient (CLI) | payer MEDICAID ==
[2021-07-20 19:14] LABS: HCT 40.3 % (37.2-46.3); HGB 12.7 g/dL (12.0-15.0); MCHC 31.5 g/dL (32.0-37.0); MCV 95.3 fL (80.0-97.0); Mean Platelet Volume 10.9 fL (9.5-12.2); Platelet Count 232 X 10*3/uL (140-440); RBC 4.23 X 10*6/uL (4.10-5.20); RDW 14.3 % (11.5-14.5); WBC 8.02 X 10*3/uL (4.50-10.00)
== END | disposition home or self-care (01) ==
LOC: LABWHC1 11:17
PROVIDERS: ATTEND Obstetrics & Gynecology
DX: N93.8 Other specified abnormal uterine and vaginal bleeding (principal)
CPT/HCPCS: 36415; 82670; 83001; 84144; 84443; 84481; 85027

== ENCOUNTER → 2021-08-05 | Outpatient (CLI) | payer MEDICAID ==
--- NOTE | 2021-08-05 09:20 | MM ---
Reason for exam: screening (asymptomatic). Last mammogram was performed 6 years and 10 months ago. History: Benign US breast aspiration single LT of the left breast, May 31, 2016. Physical Findings: A clinical breast exam by your physician is recommended on an annual basis and results should be correlated with mammographic findings. MG 3D Screening Mammo W/Cad Bilateral CC and MLO view(s) were taken. Prior study comparison: September 21, 2014, right breast MG diagnostic mammo RT w CAD. June 05, 2014, bilateral MG diagnostic mammo w CAD [facility]. The breast tissue is heterogeneously dense. This may lower the sensitivity of mammography. Stable scattered calcifications bilaterally. There is no discrete abnormality. No significant changes when compared with prior studies. ASSESSMENT: Benign, BI-RAD 2 RECOMMENDATION: Routine screening mammogram of both breasts in 1 year.
== END | disposition home or self-care (01) ==
LOC: RADMAMWWP 07:17
PROVIDERS: ATTEND Obstetrics & Gynecology
DX: Z12.31 Encounter for screening mammogram for malignant neoplasm of breast (principal)
CPT/HCPCS: 77063; 77067

== ENCOUNTER → 2021-12-14 | Outpatient (CLI) | payer MEDICAID ==
--- NOTE | 2021-12-14 12:46 | CONS ---
CONSULTATION DATE OF SERVICE: 12/14/2021 41-year-old lady has been evaluated in Sleep Center for possible obstructive sleep apnea-hypopnea syndrome. HISTORY OF PRESENT ILLNESS SLEEP-WAKE EVALUATION: SLEEP SCHEDULE: Patient's usual sleep schedule from 10:30 p.m. until 6:30 am basically 7 days a week. FALLING ASLEEP: No problems with falling asleep, although she has TV set in bedroom. DURING SLEEP: Usually sleeps on the side position. According to her , she has loud snoring and witnessed episodes of stopped breathing during sleep. The patient wakes up from sleep 2 times. Usually no episodes of nocturia. No history of hypnagogic hallucinations, sleep paralysis or cataplexy. Usually patient does not take any naps. DURING THE DAY/SLEEP WAKE EVALUATION: During the day, patient has problems with memory, concentration. Randolph Sleepiness Scale increased to 11. 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 PAST SURGICAL HISTORY: Polypectomy from the nose, tonsillectomy, adenoidectomy, cholecystectomy. FAMILY HISTORY: Heart problems, cancer, during sleep. SOCIAL HISTORY: Negative for smoking, alcohol consumption occasional. REVIEW OF SYSTEMS: Loud snoring, awakenings from sleep. PHYSICAL EXAMINATION: GENERAL: lady without distress, BP 138/77, HR 74, RR 16, height 5 feet 5-3/4 inches, weight 236.4 pounds, body mass index 38.4, temperature 97.5, oxygen saturation at room air 97%. Oropharynx practically normal position of soft palate, Mallampati 2. NECK is wide 16-1/2 inches in circumference. Neck: Supple, no JVD. Thyroid is not palpable. LUNGS: Clear to percussion and to auscultation. Good air exchange. No wheezing or rhonchi. HEART: S1, S2 regular. No murmurs, gallops, or rubs. ABDOMEN: Soft and nontender. Bowel sounds are present. No organomegaly appreciated. EXTREMITIES: No clubbing or cyanosis. PLANT PROTECTION SUPERINTENDENT: Awake, alert, and oriented X3. Cranial nerves 2 to 7 intact. There is no fasciculation or atrophy. noted. No focal deficits observed. IMPRESSION: 1. Loud snoring, witnessed episodes of stopped breathing during sleep, wide neck, 16- 1/2 inches in circumference, sleepiness. Randolph Sleepiness Scale is 11. Obstructive sleep apnea-hypopnea syndrome. 2. Hypothyroidism, possibly secondary to Enmanuel's thyroiditis. 3. Hyperlipidemia. 4. History of sinusitis. 5. History of nasal polyps, have been surgically removed. 6. Asthma. 7. Status post tonsillectomy and adenoidectomy. 8. Status post cholecystectomy. PLAN: 1. Polysomnography for evaluation of patient's breathing during sleep. 2. CPAP/BiPAP titration if sleep study confirms obstructive sleep apnea-hypopnea syndrome. 3. Preferable position during sleep on the side. 4. No driving if patient feels any sleepiness. 5. I will see patient for follow up visit to explain results of testing and following plan. Thank you very much for referring this patient for consultation. Sincerely, Brett Rodriguez MD, PhD, FAASM Diplomat of [employer] Sleep Medicine Board of [employer] Marketing Automation Specialist of [facility] [place] MMODL / IJN: [id number] /
== END | disposition home or self-care (01) ==
LOC: SLEEP 10:35
PROVIDERS: ATTEND Internal Medicine
DX: G47.33 Obstructive sleep apnea (adult) (pediatric) (principal); E03.9 Hypothyroidism, unspecified; E78.5 Hyperlipidemia, unspecified; J45.909 Unspecified asthma, uncomplicated; Z87.09 Personal history of other diseases of the respiratory system; Z90.89 Acquired absence of other organs; Z90.49 Acquired absence of other specified parts of digestive tract
CPT/HCPCS: 99211

== ENCOUNTER → 2022-03-01 | Outpatient (CLI) | payer MEDICAID ==
--- NOTE | 2022-03-01 15:30 | P.PN ---
Subjective DATE: 03/01/2022 FOLLOW UP VISIT. Patient with obstructive sleep apnea hypopnea syndrome return to sleep center for follow-up visit. Recently patient had sleep study which documented obstructive sleep apnea hypopnea syndrome. Patient was initiated on PAP therapy and today is first visit after treatment was started. Patient was able to use PAP equipment every night for the whole night. The patient does not have significant problems with the mask, PAP pressure and humidification. [place] sleepiness scale is 7. I checked information from PAP unit. PAP unit pressure 5-14, average 13.6 cm H2O. Usage is 80 % for more then 4 hours, average 6 hours per night. Leak is 15.8 l/m, which is in acceptable range. Apnea Hypopnea Index is 0.8, which is normal. During physical exam: GENERAL: A pleasant patient without any distress. VITAL SIGNS: BP 122/70, HR 60, RR 15 , weight 246.8, temperature 97.9, oxygen saturation at room air 98 . HEENT: PERRLA, EOMI.low position of soft palate, . NECK: Supple. No JVD. LUNGS: Clear to percussion and to auscultation. Good air exchange. No wheezing or rhonchi. HEART: S1, S2 regular. ABDOMEN: Soft and nontender. Slightly obese EXTREMITIES: No clubbing or cyanosis. ELECTRONIC GLUER: Awake, alert, and oriented x3. No focal deficit. Impressions: 1. Obstructive sleep apnea-hypopnea syndrome. Patient demonstrated great compliance with treatment, benefiting from treatment. 2. Hypothyroidism, possibly secondary to Enmanuel thyroiditis. 3. Hyperlipidemia. 4. Asthma. 5. History of nasal polyps. 6. Status post tonsillectomy and adenoidectomy. 7. Status post cholecystectomy. 8. History of sinusitis. Plan: 1. Continue using PAP equipment every night for the whole night. Patient may try nasal pillows mask with nasal strips and two-step. 2. To change air filter at least 1-2 times per month. 3. PAP unit should stay lower then position of the head. 4. Advised patient to remove all remaining water from humidifier canister daily and make it dry after each usage. Refill canister with fresh distilled water before each usage. 5. Sleep hygiene with regular time in bed for at least 8 hours. 6. Precautions related to driving. No driving if feel any sleepiness. 7. I will maintain prescription for PAP supplies including mask, tube, filters. 8. Follow up visit in 6 months or earlier if patient has any problems. 9. Watching and losing weight. Thank you very much for allowing me to participate in the management of your patient. Brett Rodriguez MD, PhD, FAASM. Diplomat of [employer] [place] [employer] Sleep Medicine, Sleep Medicine Board by [place] [employer] of Internal Medicine Assigner of [facility] [place]
== END ==
LOC: SLEEP 14:41
PROVIDERS: ATTEND Internal Medicine
DX: G47.33 Obstructive sleep apnea (adult) (pediatric) (principal); E03.9 Hypothyroidism, unspecified; E78.5 Hyperlipidemia, unspecified; J45.909 Unspecified asthma, uncomplicated; Z87.09 Personal history of other diseases of the respiratory system; Z90.09 Acquired absence of other part of head and neck; Z90.49 Acquired absence of other specified parts of digestive tract; Z99.89 Dependence on other enabling machines and devices; Z88.8 Allergy status to other drugs, medicaments and biological substances; Z87.891 Personal history of nicotine dependence
CPT/HCPCS: 99212

== ENCOUNTER → 2022-03-27 | Outpatient (CLI) | payer MEDICAID ==
[2022-03-27 11:39] LABS: T4, Free (Free Thyroxine) 0.69 ng/dL (0.78-2.19)
== END | disposition home or self-care (01) ==
LOC: LABWHC1 10:02
PROVIDERS: ATTEND Obstetrics & Gynecology
DX: E03.9 Hypothyroidism, unspecified (principal)
CPT/HCPCS: 36415; 84439; 84443; 84481

== ENCOUNTER → 2022-11-16 | Outpatient (CLI) | payer MEDICAID ==
--- NOTE | 2022-11-17 06:54 | MM ---
Reason for Exam: Screening (asymptomatic). Last mammogram was performed 1 year(s) and 3 month(s) ago. Patient History: Menarche at age 13. First Full-Term at age 22. Premenopausal. 05/31/2016, Benign Cyst Aspiration on the left side. Last menstrual period: 10/23/2022 Risk Values: Linda 5 year model risk: 0.6%. NCI Lifetime model risk: 8.9%. Prior Study Comparison: 06/05/2014 Bilateral Diagnostic Mammogram, [facility]. 09/21/2014 Right Diagnostic Mammogram, [facility]. 08/05/2021 Bilateral Screening Mammogram, [facility]. Tissue Density: The breast tissue is heterogeneously dense. This may lower the sensitivity of mammography. Findings: Analyzed By CAD. Mammotome biopsy clip in the left breast is redemonstrated. There are scattered and regional tiny benign-appearing round calcifications bilaterally redemonstrated There is no suspicious group of microcalcifications or new distortion in either breast. Overall Assessment: Benign, BI-RAD 2 Management: Screening Mammogram of both breasts in 1 year. Some advise bilateral breast ultrasound surveillance in patients with background dense tissue. Patient should continue monthly self-breast exams. A clinical breast exam by your physician is recommended on an annual basis. This exam should not preclude additional follow-up of suspicious palpable abnormalities. Note on Linda scores and lifetime risk: 1. A Linda score greater than 3% is considered moderate risk. If this is the case, consider specialist referral to assess eligibility for a risk reducing agent. 2. If overall lifetime risk for the development of breast cancer is 20% or higher, the patient may qualify for future screening with alternating mammogram and breast MRI. Electronically signed and approved by: Lenin Feliz M.D.
== END | disposition home or self-care (01) ==
LOC: RADMAMWWP 14:35
PROVIDERS: ATTEND Obstetrics & Gynecology
DX: Z12.31 Encounter for screening mammogram for malignant neoplasm of breast (principal)
CPT/HCPCS: 77063; 77067

== ENCOUNTER → 2023-02-08 | Outpatient (CLI) | payer MEDICAID ==
--- NOTE | 2023-02-08 10:59 | P.PN ---
Subjective DATE: 02/08/2023 FOLLOW UP VISIT. Patient with obstructive sleep apnea hypopnea syndrome return to sleep center for follow-up visit. Information from previous visit have been reviewed. During previous visit pressure in CPAP unit was decreased because patient feels they are inches stomach after using CPAP. Presently no symptoms of feeling air in the stomach. Patient is using PAP equipment every night for the whole night, getting PAP supplies in time. The patient does not have significant problems with the mask, PAP unit.. [place] sleepiness scale is 7, which is normal. I checked information from PAP unit. PAP unit pressure 5-11, average 10.9 cm H2O. Usage is 90 % for more then 4 hours, average 6.5 hours per night. Leak is 5.5 l/m, which is in acceptable range. Apnea Hypopnea Index is 1.1, which is normal. MEDICATIONS:1. duloxetine 2. Thyroid supplement During physical exam: GENERAL: A pleasant patient without any distress. VITAL SIGNS: BP 128/79, HR 67, RR 16 , weight 242.2, temperature 98.2, oxygen saturation at room air 99% . HEENT: PERRLA, EOMI.low position of soft palate, Mallapati 3 . NECK: Supple. No JVD. LUNGS: Clear to percussion and to auscultation. Good air exchange. No wheezing or rhonchi. HEART: S1, S2 regular. ABDOMEN: Soft and nontender.[] EXTREMITIES: No clubbing or cyanosis. TURKEY PINNER: Awake, alert, and oriented x3. No focal deficit. Impressions: 1. Obstructive sleep apnea-hypopnea syndrome. Patient demonstrated great compliance with treatment, benefiting from treatment. 2. Hypothyroidism. 3. History of asthma. 4. History of sinusitis and nasal polyps. 5. Status post tonsillectomy and adenoidectomy. 6. Gas post cholecystectomy. Plan: 1. Continue using PAP equipment every night for the whole night. I decreased range of the pressure to 510 centimeters of water . 2. To change air filter at least 1-2 times per month. 3. PAP unit should stay lower then position of the head. 4. Advised patient to remove all remaining water from humidifier canister daily and make it dry after each usage. Refill canister with fresh distilled water before each usage. 5. Sleep hygiene with regular time in bed for at least 8 hours. 6. Precautions related to driving. No driving if feel any sleepiness. 7. I will maintain prescription for PAP supplies including mask, tube, filters. 8. Watching and losing weight. 9. Follow up visit in 6 months or earlier if patient has any problems. Thank you very much for allowing me to participate in the management of your patient. Brett Rodriguez MD, PhD, FAASM. Diplomat of [place] [employer], Sleep Medicine Board by [place] [employer] Relations Manager of [facility] [place]
== END ==
LOC: 3 N SLEEP 10:24
PROVIDERS: ATTEND Internal Medicine
DX: G47.33 Obstructive sleep apnea (adult) (pediatric) (principal); E03.9 Hypothyroidism, unspecified; J45.909 Unspecified asthma, uncomplicated; Z98.890 Other specified postprocedural states; Z99.89 Dependence on other enabling machines and devices; Z79.890 Hormone replacement therapy; Z88.8 Allergy status to other drugs, medicaments and biological substances; Z79.51 Long term (current) use of inhaled steroids; Z87.891 Personal history of nicotine dependence
CPT/HCPCS: 99212

== ENCOUNTER 2023-03-10 13:49 | Emergency (ER) | payer MEDICAID ==
[2023-03-10 13:59] VITALS: TEMP 98.1
--- NOTE | 2023-03-10 14:34 | ED ---
General Adult HPI - General Chief complaint: Abdominal Pain Stated complaint: pain under left rib getting worse throwing up Time Seen by Provider: 03/10/23 14:32 Source: patient Mode of arrival: ambulatory Limitations: no limitations - History of Present Illness Initial comments: 43-year-old female presents to emergency department with chief complaint of abdominal pain that started this morning with associated nausea and vomiting. She states the pain has been constant for this morning. She reports taking Pepto-Bismol and Gas-X this morning with no relief. Prior abdominal surgeries include cholecystectomy. - Related Data Home Medications Medication Instructions Recorded Confirmed Albuterol Inhaler [Ventolin Hfa 1 - 2 puff INHALATION RT-Q6H PRN 12/22/16 12/23/16 Inhaler] Levothyroxine Sodium [Synthroid] 125 mcg PO DAILY 12/22/16 12/23/16 Promethaz-Cod 6.25-10 mg/5 ml 5 ml PO Q6H PRN 12/23/16 12/23/16 [Phenergan with Codeine] guaiFENesin [Mucinex] 600 mg PO BID PRN 12/23/16 12/23/16 Previous Rx's Medication Instructions Recorded Albuterol Nebulized [Ventolin 2.5 mg INHALATION Q4H PRN #25 nebu 12/22/16 Nebulized] predniSONE 50 mg PO DAILY #5 tab 12/22/16 Albuterol Nebulized [Ventolin 2.5 mg INHALATION Q4H #50 nebu 09/10/19 Nebulized] predniSONE [Deltasone] 20 mg PO BID #8 tab 09/10/19 Allergies Allergy/AdvReac Type Severity Reaction Status Date / Time bupropion HCl Allergy Severe Rash/Hives Verified 03/10/23 13:59 [From Wellbutrin] Review of Systems ROS Statement: Those systems with pertinent positive or pertinent negative responses have been documented in the HPI. ROS Other: All systems not noted in ROS Statement are negative. Past Medical History Past Medical History: Asthma, Thyroid Disorder Additional Past Medical History / Comment(s): EXERCISE INDUCED ASTHMA. HYPOTHYROID , and nasal polyps. History of Any Multi-Drug Resistant Organisms: None Reported Past Surgical History: Adenoidectomy, Cholecystectomy, Tonsillectomy Additional Past Surgical History / Comment(s): Nasal polyp removal Past Anesthesia/Blood Transfusion Reactions: Previous Problems w/ Anesthesia, Motion Sickness Additional Past Anesthesia/Blood Transfusion Reaction / Comment(s): HAS CHILLS OR SHAKING WHEN COMING OUT OF ANESTHESIA. PT ADOPTED - LIMITED FAMILY HX. Past Psychological History: Anxiety Smoking Status: Never smoker Past Alcohol Use History: Occasional Past Drug Use History: None Reported - Past Family History Father Family Medical History: Cancer Additional Family Medical History / Comment(s): LUNG CANCER WITH METS Mother Additional Family Medical History / Comment(s): HEART AND LIVER FAILURE General Exam - General Exam Comments Initial Comments: Visual Physical Exam Vital signs reviewed General: Well-appearing, nontoxic, no acute distress. Head: Normocephalic, atraumatic Eyes: PERRLA, EOMI ENT: Airway patent Chest: Nonlabored breathing Skin: No visual rash, normal skin tone Neuro: Alert and oriented 3 Musculoskeletal: No gross abnormalities Limitations: no limitations General appearance: alert, in no apparent distress Head exam: Present: atraumatic, normocephalic, normal inspection Eye exam: Present: normal appearance, PERRL, EOMI. Absent: scleral icterus, conjunctival injection, periorbital swelling ENT exam: Present: normal exam, mucous membranes moist Neck exam: Present: normal inspection. Absent: tenderness, meningismus, lymphadenopathy Respiratory exam: Present: normal lung sounds bilaterally. Absent: respiratory distress, wheezes, rales, rhonchi, stridor Cardiovascular Exam: Present: regular rate, normal rhythm, normal heart sounds. Absent: systolic murmur, diastolic murmur, rubs, gallop, clicks GI/Abdominal exam: Present: tenderness (RLQ), normal bowel sounds, other (McBu rney point tenderness, positive Rovsing sign). Absent: rebound, rigid Extremities exam: Present: normal inspection, full ROM, normal capillary refill. Absent: tenderness, pedal edema, joint swelling, calf tenderness Back exam: Present: normal inspection Neurological exam: Present: alert, oriented X3 Psychiatric exam: Present: normal affect, normal mood Skin exam: Present: warm, dry, intact, normal color. Absent: rash Course Vital Signs 03/10/23 03/10/23 13:56 18:59 Temperature 98.1 F Pulse Rate 56 L 84 Respiratory 20 18 Rate Blood Pressure 124/86 118/83 O2 Sat by Pulse 100 99 Oximetry Medical Decision Making - Medical Decision Making I performed a quick no portion of this chart electronically signed Beulah Maya PA-C Was pt. sent in by a medical professional or institution (WILTON Corrigan, EQUIPMENT MAINTENANCE TECH, urgent care, hospital, or jail...) When possible be specific @ -No Did you speak to anyone other than the patient for history (EMS, parent, family, police, friend...)? What history was obtained from this source @ -No Did you review nursing and triage notes (agree or disagree)? Why? @ -I reviewed and agree with nursing and triage notes Were old charts reviewed (outside hosp., previous admission, EMS record, old EKG, old radiological studies, urgent care reports/EKG's, jail records)? Report findings @ -No old charts were reviewed Differential Diagnosis (chest pain, altered mental status, abdominal pain women, abdominal pain men, vaginal bleeding, weakness, fever, dyspnea, syncope, headache, dizziness, GI bleed, back pain, seizure, CVA, palpatations, mental health, musculoskeletal)? @ -Differential Abdominal Pain Women: Appendicitis, Cholecystitis, diverticulosis, ischemic bowel, pancreatitis, hepatitis, UTI, gastroenteritis, AAA, incarcerated hernia, bowel obstruction, constipation, inflammatory bowel, hepatitis, peptic ulcer disease, splenic infarction, perforated viscus, vulvitis, ovarian torsion, PID, kidney stone, placenta abruption, this is not meant to be an all-inclusive list EKG interpreted by me (3pts min.). @ -EKG at 1403 shows sinus bradycardia rate 58, TN 133, QRS 88, QTQTc [id number] X-rays interpreted by me (1pt min.). @ -None done CT interpreted by me (1pt min.). @ -CT abd pelvis shows dilated appendix with adjacent inflammatory changes compatible with acute appendicitis U/S interpreted by me (1pt. min.). @ -None done What testing was considered but not performed or refused? (CT, X-rays, U/S, labs)? Why? @ -None What meds were considered but not given or refused? Why? @ -None Did you discuss the management of the patient with other professionals (cassandra granados i.e. WILTON Corrigan, EQUIPMENT MAINTENANCE TECH, lab, RT, psych nurse, psychiatric social worker, quality supervisor, teacher, special weapons unit officer, dependency case manager)? Give summary @ -Dr. Harrington contacted me to discuss results of computed tomography scan which shows acute uncomplicated appendicitis Patient requested Dr. Corrigan, he was contacted but declined the patient as he is out of town Discussed with Dr. Alanis at [facility] who discussed the case with Dr. Parsons who declines transfer Case discussed with Dr. Simon at [facility] who is accepting the transfer Was smoking cessation discussed for >3mins.? @ -No Was critical care preformed (if so, how long)? @ -No Were there social determinants of health that impacted care today? How? (Homelessness, low income, unemployed, alcoholism, drug addiction, transportation, low edu. Level, literacy, decrease access to med. care, retirement, rehab)? @ -No Was there de-escalation of care discussed even if they declined (Discuss DNR or withdrawal of care, Hospice)? DNR status @ -No What co-morbidities impacted this encounter? (DM, HTN, Smoking, COPD, CAD, Cancer, CVA, ARF, Chemo, Hep., AIDS, mental health diagnosis, sleep apnea, morbid obesity)? @ -None Was patient admitted / discharged? Hospital course, mention meds given and route, prescriptions, significant lab abnormalities, going to OR and other pertinent info. @ -Patient presented to the emergency department for chief complaint of abdominal pain x1 day with associated nausea and vomiting. CBC shows WBC 19.2. On exam, patient has positive McBurney point tenderness, positive Rovsing's. Patient given toradol and 2L NS. CT abd pelvis shows dilated appendix with adjacent inflammatory changes compatible with acute appendicitis. Patient started on Zosyn. She is requesting Dr. Corrigan to perform her surgery was contacted and is out of town. Because of this, patient is requesting to be transferred to another facility. [facility] was contacted and I spoke to Dr. Alanis who discussed the case with on-call surgeon and declines the transfer. Case also discussed with ER physician at [facility], Dr. Simon. Patient accepted by Dr. Simon at [facility]. Patient will be transferred to [facility] per patient preference. Patient is stable and will go private vehicle directly to [facility]. Patient understands the risk of going private vehicle and expressed understanding and agreement. Case discussed with my attending, Dr. Blackwell Undiagnosed new problem with uncertain prognosis? @ -No Drug Therapy requiring intensive monitoring for toxicity (Heparin, Nitro, Insulin, Cardizem)? @ -No Were any procedures done? @ -No Diagnosis/symptom? @ -Acute appendicitis Acute, or Chronic, or Acute on Chronic? @ -acute Uncomplicated (without systemic symptoms) or Complicated (systemic symptoms)? @ -uncomplicated Side effects of treatment? @ -No Exacerbation, Progression, or Severe Exacerbation? @ -No Poses a threat to life or bodily function? How? (Chest pain, [place], [place], pneumonia, PE, COPD, DKA, ARF, appy, cholecystitis, CVA, Diverticulitis, Homicidal, Suicidal, threat to staff... and all critical care pts) @ -Appendicitis - Lab Data Result diagrams: 03/10/23 15:43 03/10/23 15:43 Lab Results 03/10/23 03/10/23 Range/Units 15:43 15:43 WBC 19.2 H (3.8-10.6) k/uL RBC 4.55 (3.80-5.40) m/uL Hgb 13.1 (11.4-16.0) gm/dL Hct 41.1 (34.0-46.0) % MCV 90.4 (80.0-100.0) fL MCH 28.9 (25.0-35.0) pg MCHC 32.0 (31.0-37.0) g/dL RDW 15.1 (11.5-15.5) % Plt Count 248 (150-450) k/uL MPV 8.2 Neutrophils % 88 % Lymphocytes % 7 % Monocytes % 4 % Eosinophils % 1 % Basophils % 0 % Neutrophils # 16.9 H (1.3-7.7) k/uL Lymphocytes # 1.4 (1.0-4.8) k/uL Monocytes # 0.7 (0-1.0) k/uL Eosinophils # 0.1 (0-0.7) k/uL Basophils # 0.0 (0-0.2) k/uL Sodium 137 (137-145) mmol/L Potassium 4.3 (3.5-5.1) mmol/L Chloride 106 (98-107) mmol/L Carbon Dioxide 21 L (22-30) mmol/L Anion Gap 10 mmol/L BUN 7 (7-17) mg/dL Creatinine 0.68 (0.52-1.04) mg/dL Est GFR (CKD-EPI)AfAm >90 (>60 ml/min/1.73 sqM) Est GFR (CKD-EPI)NonAf >90 (>60 ml/min/1.73 sqM) Glucose 115 H (74-99) mg/dL Calcium 9.1 (8.4-10.2) mg/dL Total Bilirubin 0.6 (0.2-1.3) mg/dL AST 20 (14-36) U/L ALT 23 (4-34) U/L Alkaline Phosphatase 77 (38-126) U/L Total Protein 7.7 (6.3-8.2) g/dL Albumin 4.6 (3.5-5.0) g/dL Amylase 50 (30-110) U/L Lipase 47 (23-300) U/L Disposition Clinical Impression: Acute appendicitis Disposition: OTHER INSTITUTION NOT DEFINED Condition: Stable Additional Instructions: Please go directly to [facility]. Is patient prescribed a controlled substance at d/c from ED?: No Referrals: Josias Robertson MD [Primary Care Provider] - 1-2 days - Out of Hospital Transfer - Req. Specs Out of Hospital Transfer - Requested Specifics: Other Emergency Center ([facility], private vehicle)
[2023-03-10] MEDS ORDERED: SODIUM CHLORIDE 0.9% 2,000 ML IV ONE (15:55)
[2023-03-10] MEDS ORDERED: ONDANSETRON 4 MG/2 ML VIAL IVP STA (15:55)
[2023-03-10 16:09] LABS: Basophils % (A) 0 %; Eosinophils # (A) 0.1 k/uL (0-0.7); Eosinophils % (A) 1 %; HCT 41.1 % (34.0-46.0); HGB 13.1 gm/dL (11.4-16.0); Lymphocytes # (A) 1.4 k/uL (1.0-4.8); Lymphocytes % (A) 7 %; MCH 28.9 pg (25.0-35.0); MCV 90.4 fL (80.0-100.0); Mean Platelet Volume 8.2; Monocytes # (A) 0.7 k/uL (0-1.0); Monocytes % (A) 4 %; Neutrophils # (A) 16.9 k/uL (1.3-7.7); Neutrophils % (A) 88 %; Platelet Count 248 k/uL (150-450); RBC 4.55 m/uL (3.80-5.40); RDW 15.1 % (11.5-15.5); WBC 19.2 k/uL (3.8-10.6)
[2023-03-10 16:21] LABS: ALT 23 U/L (4-34); AST 20 U/L (14-36); African American GFR (CKD) >90 (>60 ml/min/1.73 sqM); Albumin 4.6 g/dL (3.5-5.0); Alkaline Phosphatase 77 U/L (38-126); Amylase 50 U/L (30-110); Anion Gap 10 mmol/L; Blood Urea Nitrogen 7 mg/dL (7-17); Calcium 9.1 mg/dL (8.4-10.2); Carbon Dioxide 21 mmol/L (22-30); Chloride 106 mmol/L (98-107); Glucose 115 mg/dL (74-99); Lipase 47 U/L (23-300); Non-African American GFR(CKD) >90 (>60 ml/min/1.73 sqM); Potassium 4.3 mmol/L (3.5-5.1); Sodium 137 mmol/L (137-145); Total Bilirubin 0.6 mg/dL (0.2-1.3); Total Protein 7.7 g/dL (6.3-8.2)
[2023-03-10] MEDS ORDERED: KETOROLAC 15 MG/ML 1 ML VIAL IVP STA (16:41)
--- NOTE | 2023-03-10 18:10 | CT ---
EXAMINATION TYPE: CT abdomen pelvis w con DATE OF EXAM: 03/10/2023 COMPARISON: None INDICATION: RLQ and LUQ pain, vomiting DLP: 1789.2 mGycm, Automated exposure control for dose reduction was used. CONTRAST: 100 mL of Isovue 370. Study performed without Oral Contrast TECHNIQUE: Axial images were obtained from above the diaphragm to the pubic rami in the axial plane a t 5 mm thick sections. Reconstructed images are reviewed on the computer in the coronal plane. FINDINGS: Limited CT sections are obtained the lung bases. The lung bases are clear. CT ABDOMEN: Liver: Normal Spleen: Normal Pancreas: Normal Adrenal glands: The adrenal glands are normal. Gallbladder: Surgically absent Kidneys: No masses are evident. No hydronephrosis is present. No cysts are present. Delayed images were obtained through the kidneys, which remain unremarkable. Aorta: Normal Inferior vena cava: Normal. CT PELVIS: Loops of bowel within the abdomen and pelvis are normal. There are loops of bowel which are incom pletely distended or lack oral contrast limiting their evaluation. Appendix: The appendix appears to be dilated tracking from the cecum towards the midline and this has a transverse dimension of 1.6 cm. Normal less than 0.7 cm. Inflammatory changes are adjacent. Clinic al correlation for acute appendicitis is recommended. No free air or abscess formation identified. Urinary bladder: Decompressed limiting evaluation. Genitourinary structures: Uterus contains an IUD. The adnexa are normal. Osseous structures: No suspicious lytic or sclerotic lesions. IMPRESSION: 1. Dilated appendix with adjacent inflammatory changes can be compatible with acute appendicitis. Co rrelate with the patient's symptoms. Report was called to the emergency room PA by Dr. Harrington by tel [facility] at time of interpretation.
[2023-03-10] MEDS ORDERED: PIPERACILLIN-TAZOBACTAM 3.375 GM in SODIUM CHLORIDE 0.9% 100 ML IVPB STA (18:16)
[2023-03-10 20:16] LABS: Appearance,Urine Clear (Clear); Bilirubin,Urine Negative (Negative); Blood,Urine Negative (Negative); Color,Urine Colorless; Glucose,Urine (UA) Negative (Negative); Ketones,Urine Negative (Negative); Leukocyte Esterase,Urine Negative (Negative); Nitrite,Urine Negative (Negative); Protein,Urine Negative (Negative); Urobilinogen,Urine <2.0 mg/dL (<2.0)
[2023-03-10 20:25] VITALS: BP 126/79; PULSE 88; RESP 20
== END 2023-03-10 20:51 | disposition other institution (70) ==
LOC: EC 13:49
DX: K35.80 Unspecified acute appendicitis (principal); R00.1 Bradycardia, unspecified; J45.909 Unspecified asthma, uncomplicated; E03.9 Hypothyroidism, unspecified; Z86.59 Personal history of other mental and behavioral disorders; Z79.890 Hormone replacement therapy; Z79.899 Other long term (current) drug therapy; Z88.8 Allergy status to other drugs, medicaments and biological substances; Z90.49 Acquired absence of other specified parts of digestive tract
CPT/HCPCS: 99285; 96365; 96375 ×2; 96361 ×2; 36415; 93005; 80053; 82150; 83690; 85025; 81003; 74177; J2543; J2405; J1885; Q9967

== ENCOUNTER → 2023-11-06 | Outpatient (CLI) | payer BC ==
--- NOTE | 2023-11-08 11:43 | CA ---
Transthoracic Echo Report Name: Laquita Randall Age: 43 Gender: F : 1980 Exam Date: 11/06/2023 15:16 Exam Location: [place] Ht (in): 65 Wt (lb): 268 Ordering Physician: Josias Robertson MD Attending/Referring Phys: Sailaja Adame PAC Ex Chef Tiffanie Soria RDCS Procedure CPT: Indications: I34.0 NONRHEUMATIC MITRAL (VALVE) INSUFFICIENCY Cardiac Hx: Technical Quality: Fair Contrast 1: Total Dose (mL): Contrast 2: Total Dose (mL): MEASUREMENTS (Male / Female) Normal Values 2D ECHO LV Diastolic Diameter PLAX 4.9 cm 4.2 - 5.9 / 3.9 - 5.3 cm LV Systolic Diameter PLAX 3.8 cm IVS Diastolic Thickness 1.0 cm 0.6 - 1.0 / 0.6 - 0.9 cm LVPW Diastolic Thickness 1.1 cm 0.6 - 1.0 / 0.6 - 0.9 cm LV Relative Wall Thickness 0.4 RV Internal Dim ED PLAX 2.5 cm LA Systolic Diameter LX 3.6 cm 3.0 - 4.0 / 2.7 - 3.8 cm LV Diastolic Volume MOD BP 78.6 cm??? 67 - 155 / 56 - 104 cm??? LV Systolic Volume MOD BP 31.6 cm??? 22 - 58 / 19 - 49 cm??? LV Ejection Fraction MOD BP 59.8 % >= 55 % LV Diastolic Volume MOD 4C 71.3 cm??? LV Systolic Volume MOD 4C 23.9 cm??? LV Ejection Fraction MOD 4C 66.4 % LV Diastolic Length 4C 8.0 cm LV Systolic Length 4C 6.4 cm LV Diastolic Volume MOD 2C 85.8 cm??? LV Systolic Volume MOD 2C 37.8 cm??? LV Ejection Fraction MOD 2C 56.0 % LV Diastolic Length 2C 8.2 cm LV Systolic Length 2C 7.2 cm M-MODE Aortic Root Diameter MM 3.0 cm LA Systolic Diameter MM 3.6 cm LA Ao Ratio MM 1.2 AV Cusp Separation MM 2.1 cm DOPPLER AV Peak Velocity 148.5 cm/s AV Peak Gradient 8.8 mmHg Mitral E Point Velocity 83.7 cm/s Mitral A Point Velocity 81.1 cm/s Mitral E to A Ratio 1.0 MV Deceleration Time 279.6 ms MV E' Velocity 10.0 cm/s Mitral E to MV E' Ratio 8.4 TR Peak Velocity 159.2 cm/s TR Peak Gradient 10.1 mmHg Right Ventricular Systolic Press 15.1 mmHg FINDINGS Left Ventricle Left ventricular ejection fraction is estimated at 55-60 %. Mildly increased septal wall thickness. Mildly increased posterior wall thickness. No obvious regional wall motion abnormalities. Left ventricular cavity size normal. Right Ventricle Normal right ventricular size and function. Right ventricular systolic pressure within normal limits. Right Atrium Normal right atrial size. Left Atrium Normal left atrial size. Mitral Valve Structurally normal mitral valve. Trace mitral regurgitation. No mitral stenosis. Aortic Valve Trileaflet aortic valve. No aortic valve stenosis or regurgitation. Tricuspid Valve Structurally normal tricuspid valve. Trace to mild tricuspid regurgitation. Pulmonic Valve Structurally normal pulmonic valve. Trace pulmonic regurgitation. Pericardium No pericardial or pleural effusion. Aorta Normal size aortic root and proximal ascending aorta. CONCLUSIONS Normal LV systolic function Poorly visualized intracardiac valves Previewed by: Dr. Colby Moody MD (Electronically Signed) Final Date: 08 Nov 2023 11:42
== END | disposition home or self-care (01) ==
LOC: RADECHMAIN 15:06
PROVIDERS: ATTEND Internal Medicine Geriatric Medicine
DX: I34.0 Nonrheumatic mitral (valve) insufficiency (principal)
CPT/HCPCS: 93306

== ENCOUNTER → 2023-11-07 | Outpatient (CLI) | payer BC ==
--- NOTE | 2023-11-07 08:56 | US ---
EXAMINATION TYPE: US abdomen complete DATE OF EXAM: 11/07/2023 COMPARISON: CT 03/10/23 CLINICAL INDICATION: Female, 43 years old with history of R10.9 ABDOMINAL PAIN, I34.0; hx cholecystec mauricio, appendectomy. Patient states she has midline enlargement and fullness. States she notices a bul ge just superior to the umbilicus TECHNIQUE: Multiple sonographic images of the abdomen are obtained. Additional sonographic images sup erior to the umbilicus in the patient's area of concern were obtained with and without Valsalva maneu gabriel. FINDINGS: EXAM MEASUREMENTS: Liver Length: 15.5 cm Gallbladder Wall: Surgically absent CBD: 0.62 cm Spleen: 10.1 x 10.8 x 4.4 cm Right Kidney: 11.2 x 4.9 x 5.4 cm Left Kidney: 12.2 x 5.7 x 5.8 cm VENIPUNCTURIST NOTES: Pancreas: Obscured by bowel gas Liver: wnl Gallbladder: Surgically absent CBD: wnl Spleen: wnl Right Kidney: wnl Left Kidney: wnl Upper IVC: wnl Abd Aorta: wnl At area of concern, midline superior to umbilicus, there is a focal area with defect in the abdominal wall representing a hernia. Area measures 6.4 x 3.3 x 6.6 cm with a 1.7cm neck/break. Appears to con tain mesenteric fat. This corresponds to previously seen fat-containing ventral wall hernia on prior CT. The liver is homogenous. The intrahepatic portion of the IVC and proximal abdominal aorta are within normal limits. Gallbladder is surgically absent. Common bile duct is normal post cholecystectomy. T he pancreas is not visualized due to obscuration due to overlying bowel gas. The spleen is unremarkab le. Kidneys are symmetric and free of hydronephrosis. No renal lesions are seen. IMPRESSION: 1. Ventral wall fat-containing abdominal hernia as seen on prior CT 03/10/2023. 2. Post cholecystectomy.
== END | disposition home or self-care (01) ==
LOC: RADUSWWP 06:54
PROVIDERS: ATTEND Internal Medicine Geriatric Medicine
DX: I34.0 Nonrheumatic mitral (valve) insufficiency (principal); K46.9 Unspecified abdominal hernia without obstruction or gangrene; Z90.49 Acquired absence of other specified parts of digestive tract
CPT/HCPCS: 76700

== ENCOUNTER → 2023-11-23 | Outpatient (CLI) | payer BC ==
--- NOTE | 2023-11-23 10:02 | MM ---
Reason for Exam: Screening (asymptomatic). Last screening mammogram was performed 12 month(s) ago. Patient History: Menarche at age 13. First Full-Term at age 22. Premenopausal. 05/31/2016, Benign Cyst Aspiration on the left side. Risk Values: Linda 5 year model risk: 0.6%. NCI Lifetime model risk: 8.8%. Prior Study Comparison: 09/21/2014 Right Diagnostic Mammogram, [facility]. 08/05/2021 Bilateral Screening Mammogram, [facility]. 11/16/2022 Bilateral MG 3D screening mammo w/cad, [facility]. Tissue Density: The breasts are heterogeneously dense, which may obscure small masses. Findings: Analyzed By CAD. The pattern is symmetrical. No significant interval change is evident. There are markers within the left breast. Scattered benign punctate calcifications are present bilaterally. Within the right breast there is some new rounded punctate calcifications in the mid posterior right breast MLO view. These are not clearly identified on the craniocaudal view. Additional workup with magnification views are recommended. Left breast:No suspicious groups of microcalcifications, spiculated or lobular masses, architectural distortion or other secondary signs of malignancy are mammographically apparent. Overall Assessment: Incomplete: need additional imaging evaluation, BI-RAD 0 Management: Diagnostic Mammogram of the right breast. A negative mammogram report should not preclude additional follow up of suspicious palpable abnormalities. Patient should continue monthly self breast exam. A clinical breast exam by your physician is recommended on an annual basis and results should be correlated with mammographic findings. Note on Linda scores and lifetime risk: 1. A Linda score greater than 3% is considered moderate risk. If this is the case, consider specialist referral to assess eligibility for a risk reducing agent. 2. If overall lifetime risk for the development of breast cancer is 20% or higher, the patient may qualify for future screening with alternating mammogram and breast MRI. Electronically signed and approved by: Ian Harrington D.O. Radiologis
== END | disposition home or self-care (01) ==
LOC: RADMAMWWP 08:05
PROVIDERS: ATTEND Obstetrics & Gynecology
DX: Z12.31 Encounter for screening mammogram for malignant neoplasm of breast (principal)
CPT/HCPCS: 77067

== ENCOUNTER → 2023-11-28 | Outpatient (CLI) | payer BC ==
--- NOTE | 2023-11-28 08:01 | MM ---
Reason for Exam: Additional evaluation requested from abnormal screening. Last screening mammogram was performed less than 1 month ago. Patient History: Menarche at age 13. First Full-Term at age 22. Premenopausal. 05/31/2016, Benign Cyst Aspiration on the left side. Risk Values: Linda 5 year model risk: 0.6%. NCI Lifetime model risk: 8.8%. Prior Study Comparison: 06/03/2014 Right Diagnostic Ultrasound, [facility]. 06/05/2014 Bilateral Diagnostic Mammogram, [facility]. 09/21/2014 Right Diagnostic Mammogram, [facility]. 09/21/2014 Right Diagnostic Ultrasound, [facility]. 05/15/2016 Left Diagnostic Ultrasound, [facility]. 08/05/2021 Bilateral Screening Mammogram, [facility]. 11/16/2022 Bilateral MG 3D screening mammo w/cad, [facility]. 11/23/2023 Bilateral MG screening mammo w CAD, [facility]. Tissue Density: Right: The breasts are heterogeneously dense, which may obscure small masses. Findings: Analyzed By CAD. The pattern is stable. There is a group of fine punctate calcifications in the upper outer right breast stereotactic core biopsy is recommended. Overall Assessment: Suspicious, BI-RAD 4 Management: Stereotactic Core Biopsy of the right breast. A negative mammogram report should not preclude additional follow up of suspicious palpable abnormalities. Patient should continue monthly self breast exam. A clinical breast exam by your physician is recommended on an annual basis and results should be correlated with mammographic findings. Note on Linda scores and lifetime risk: 1. A Linda score greater than 3% is considered moderate risk. If this is the case, consider specialist referral to assess eligibility for a risk reducing agent. 2. If overall lifetime risk for the development of breast cancer is 20% or higher, the patient may qualify for future screening with alternating mammogram and breast MRI. Electronically signed and approved by: Ian Harrington D.O. Radiologis
== END | disposition home or self-care (01) ==
LOC: RADMAMWWP 07:29
PROVIDERS: ATTEND Obstetrics & Gynecology
DX: R92.8 Other abnormal and inconclusive findings on diagnostic imaging of breast (principal); R92.331 Mammographic heterogeneous density, right breast; R92.1 Mammographic calcification found on diagnostic imaging of breast
CPT/HCPCS: 77061; 77065

== ENCOUNTER → 2023-12-03 | Day surgery (SDC) | payer BC ==
[~2023-12-03] MED LIST: ALPRAZolam 0.25 MG TAB PO PRN; ALPRAZolam 0.5 MG TAB PO PRN
[2023-12-03 08:32] VITALS: RESP 16
[2023-12-03 13:23] VITALS: BP 150/90; PULSE 65; TEMP 98.1
--- NOTE | 2023-12-06 08:15 | MM ---
Risk Values: Linda 5 year model risk: 0.6%. NCI Lifetime model risk: 8.8%. Prior Study Comparison: 11/16/2022 Bilateral MG 3D screening mammo w/cad, [facility]. 11/23/2023 Bilateral MG screening mammo w CAD, [facility]. 11/28/2023 Right MG 3D work up w/cad RT, [facility]. Pathology Description: Marker Left Behind. Specimen Radiograph. Cores: 10 Skin Nicks: 1 The procedure of stereotactic guided core biopsy was explained to the patient. Benefits, alternatives, and risks were discussed. An informed consent was then obtained. Initial lateral approach was attempted by we were unable to clearly identify the calcifications of interest. CC approach from above was subsequently utilized. I performed the localization, followed by the remainder of the procedure. A vacuum assisted biopsy gun was used to obtain 10 core samples. The patient tolerated the procedure well without any immediate complication. The patient was kept in the radiology department for short stay after the procedure and then discharged home in stable condition. Targeted calcifications are identified in specimen mammogram. Post biopsy mammogram shows the clip to appear in satisfactory position relative to the targeted area of concern on the preprocedure images. IMPRESSION: SUCCESSFUL, UNCOMPLICATED STEREOTACTIC GUIDED CORE BIOPSY OF SMALL, GROUPED RIGHT BREAST MICROCALCIFICATIONS. Pathology Results: Result: Benign, Fibrocystic change. Pathology and radiology were reviewed. Findings are concordant. RIGHT BREAST, STEREOTACTIC CORE BIOPSY: Fibrocystic change with columnar cell change, fibrosis, focal microcalcification, focal adenosis and mammary duct ectasia with mild periductal chronic inflammation. Overall Assessment: Benign Management: Diagnostic Mammogram of the right breast in 6 months. Electronically signed and approved by: Justin Curran M.D. Radiologist
== END ==
LOC: RADMAMWWP 07:21
PROVIDERS: ATTEND Surgery
DX: N60.21 Fibroadenosis of right breast (principal); N60.41 Mammary duct ectasia of right breast; R92.8 Other abnormal and inconclusive findings on diagnostic imaging of breast
CPT/HCPCS: 88305; 19081; A4648; J2001

== ENCOUNTER 2024-02-24 22:41 | Emergency (ER) | payer BC ==
[2024-02-24 22:44] VITALS: RESP 18; TEMP 98
--- NOTE | 2024-02-24 22:48 | ED ---
Chest Pain HPI - General Chief Complaint: Chest Pain Stated Complaint: Chest pain Time Seen by Provider: 02/24/24 22:45 Source: patient, RN notes reviewed, old records reviewed Mode of arrival: ambulatory Limitations: no limitations - History of Present Illness Initial Comments: This is a 44-year-old female with history of asthma coming with chest pain left shoulder chest pain left-sided chest pain. Chest pain to her left shoulder and back. Patient has no travel history no sick contacts no other complaints no fever cough or congestion no prior history of similar past MD Complaint: chest pain -: days(s) Onset: during rest, during exertion Pain Location: left chest Pain Radiation: LUE, back Severity: moderate Severity scale (1-10): 5 Quality: aching Consistency: constant Improves With: nothing Worsens With: nothing Anginal Symptoms: nausea Other Symptoms: cough - Related Data Home Medications Medication Instructions Recorded Confirmed DULoxetine HCL [Cymbalta] 60 mg PO DAILY 11/28/23 12/03/23 Dupilumab [Dupixent Syringe] 0 mg SQ WEEKLY 11/28/23 12/03/23 Thyroid,Pork [Design Release Engineer Thyroid 120] 120 mg PO DAILY 11/28/23 12/03/23 Allergies Allergy/AdvReac Type Severity Reaction Status Date / Time bupropion HCl Allergy Severe Rash/Hives Verified 02/24/24 22:44 [From Wellbutrin] Review of Systems ROS Statement: Those systems with pertinent positive or pertinent negative responses have been documented in the HPI. ROS Other: All systems not noted in ROS Statement are negative. EKG Findings - EKG Comments: EKG Findings:: EKG is sinus 78 [place] 157 QRS 91 QTc 404 - EKG Results: EKG: interpreted by TORIN Past Medical History Past Medical History: Asthma, Thyroid Disorder Additional Past Medical History / Comment(s): EXERCISE INDUCED ASTHMA. HYPOTHYROID , and nasal polyps. History of Any Multi-Drug Resistant Organisms: None Reported Past Surgical History: Adenoidectomy, Appendectomy, Cholecystectomy, Tonsillectomy Additional Past Surgical History / Comment(s): Nasal polyp removal Past Anesthesia/Blood Transfusion Reactions: Previous Problems w/ Anesthesia, Motion Sickness Additional Past Anesthesia/Blood Transfusion Reaction / Comment(s): HAS CHILLS OR SHAKING WHEN COMING OUT OF ANESTHESIA. PT ADOPTED - LIMITED FAMILY HX. Past Psychological History: Anxiety, Depression Smoking Status: Former smoker Past Alcohol Use History: Occasional Past Drug Use History: None Reported - Past Family History Father Family Medical History: Cancer Additional Family Medical History / Comment(s): LUNG CANCER WITH METS Mother Additional Family Medical History / Comment(s): HEART AND LIVER FAILURE General Exam Limitations: no limitations General appearance: alert, in no apparent distress, anxious Head exam: Present: atraumatic, normocephalic, normal inspection Eye exam: Present: normal appearance, PERRL, EOMI. Absent: scleral icterus, conjunctival injection, periorbital swelling ENT exam: Present: normal exam, mucous membranes moist Neck exam: Present: normal inspection. Absent: tenderness, meningismus, lymphadenopathy Respiratory exam: Present: normal lung sounds bilaterally. Absent: respiratory distress, wheezes, rales, rhonchi, stridor Cardiovascular Exam: Present: regular rate, normal rhythm, normal heart sounds. Absent: systolic murmur, diastolic murmur, rubs, gallop, clicks GI/Abdominal exam: Present: soft, normal bowel sounds. Absent: distended, tenderness, guarding, rebound, rigid Extremities exam: Present: normal inspection, full ROM, normal capillary refill. Absent: tenderness, pedal edema, joint swelling, calf tenderness Back exam: Present: normal inspection Neurological exam: Present: alert, oriented X3, CN II-XII intact Psychiatric exam: Present: normal affect, normal mood Skin exam: Present: warm, dry, intact, normal color. Absent: rash Course Vital Signs 02/24/24 02/25/24 22:43 03:38 Temperature 98 F Pulse Rate 85 63 Respiratory 18 18 Rate Blood Pressure 172/99 165/109 O2 Sat by Pulse 97 96 Oximetry - Reevaluation(s) Reevaluation #1: Medical records reviewed Reevaluation #2: Symptoms improved Reevaluation #3: Patient informed of results and questions answered Reevaluation #4: Was pt. sent in by a medical professional or institution (, PA, WOOD SCIENCE PROFESSOR, urgent care, hospital, or jail...) When possible be specific @ -no Did you speak to anyone other than the patient for history (EMS, parent, family, police, friend...)? What history was obtained from this source @ -no Did you review nursing and triage notes (agree or disagree)? Why? @ -agree Are old charts reviewed (outside hosp., previous admission, EMS record, old EKG, old radiological studies, urgent care reports/EKG's, jail records)? Report findings @ -yes Differential Diagnosis (chest pain, altered mental status, abdominal pain women, abdominal pain men, vaginal bleeding, weakness, fever, dyspnea, syncope, headache, dizziness, GI bleed, back pain, seizure, CVA, palpatations, mental health, musculoskeletal)? @ -prior EKG interpreted by me (3pts min.). @ -yes X-rays interpreted by me (1pt min.). @ -yes negative for acute disease CT interpreted by me (1pt min.). @ -no U/S interpreted by me (1pt. min.). @ -no What testing was considered but not performed or refused? (CT, X-rays, U/S, labs)? Why? @ -none What meds were considered but not given or refused? Why? @ -none Did you discuss the management of the patient with other professionals (professionals i.e. , PA, WOOD SCIENCE PROFESSOR, lab, RT, psych nurse, criminal justice social worker, video technician, teacher, senior credit officer, piano case and bench assembler)? Give summary @ -no Was smoking cessation discussed for >3mins.? @ -no Was critical care preformed (if so, how long)? @ -no Were there social determinants of health that impacted care today? How? (Homelessness, low income, unemployed, alcoholism, drug addiction, transportation, low edu. Level, literacy, decrease access to med. care, long term, rehab)? @ -none Was there de-escalation of care discussed even if they declined (Discuss DNR or withdrawal of care, Hospice)? DNR status @ -no What co-morbidities impacted this encounter? (DM, HTN, Smoking, COPD, CAD, Cancer, CVA, ARF, Chemo, Hep., AIDS, mental health diagnosis, sleep apnea, morbid obesity)? @ -none Was patient admitted / discharged? Hospital course, mention meds given and route, prescriptions, significant lab abnormalities, going to OR and other pertinent info. @ - 44 female with nonspecific chest pain presenting to the ER today. Patient has no acute findings here in the ER feels well can be discharged home Discharge Undiagnosed new problem with uncertain prognosis? @ -no Drug Therapy requiring intensive monitoring for toxicity (Heparin, Nitro, Insulin, Cardizem)? @ -no Were any procedures done? @ -no Diagnosis/symptom? @ -atypical chest pain Acute, or Chronic, or Acute on Chronic? @ -Acute Uncomplicated (without systemic symptoms) or Complicated (systemic symptoms)? @ -Complicated Side effects of treatment? @ -no Exacerbation, Progression, or Severe Exacerbation? @ -exacerbation Poses a threat to life or bodily function? How? (Chest pain, [place], [place], pneumonia, PE, COPD, DKA, ARF, appy, cholecystitis, CVA, Diverticulitis, Homicidal, Suicidal, threat to staff... and all critical care pts) @ -yes with chest pain Reevaluation #5: Differential Chest Pain: Stable Angina, Unstable Angina, STEMI, NSTEMI Aortic Dissection, Pneumothorax, Musculoskeletal, Esophageal Spasm GERD, Cholecystitis, Pancreatitis, Zoster, this is not meant to be an all-inclusive list. Chest Pain MDM - MDM 44 female with nonspecific chest pain presenting to the ER today. Patient has no acute findings here in the ER feels well can be discharged home Disposition Clinical Impression: Atypical chest pain, Chest pain, Dyspnea, Edema Disposition: HOME SELF-CARE Condition: Good Instructions (If sedation given, give patient instructions): Lymphedema (ED), Edema (ED) Is patient prescribed a controlled substance at d/c from ED?: No Referrals: Josias Robertson MD [Primary Care Provider] - 1-2 days Time of Disposition: 03:30
[2024-02-24 23:44] LABS: Basophils # (A) 0.1 k/uL (0-0.2); Basophils % (A) 1 %; Eosinophils # (A) 0.8 k/uL (0-0.7); Eosinophils % (A) 9 %; HCT 37.5 % (34.0-46.0); HGB 12.6 gm/dL (11.4-16.0); Lymphocytes # (A) 3.1 k/uL (1.0-4.8); Lymphocytes % (A) 34 %; MCH 30.7 pg (25.0-35.0); MCHC 33.6 g/dL (31.0-37.0); MCV 91.4 fL (80.0-100.0); Mean Platelet Volume 7.5; Monocytes # (A) 0.4 k/uL (0-1.0); Monocytes % (A) 4 %; Neutrophils # (A) 4.8 k/uL (1.3-7.7); Neutrophils % (A) 52 %; Platelet Count 267 k/uL (150-450); RBC 4.11 m/uL (3.80-5.40); RDW 14.6 % (11.5-15.5); WBC 9.3 k/uL (3.8-10.6)
[2024-02-25 00:03] LABS: ALT 22 U/L (4-34); AST 25 U/L (14-36); African American GFR (CKD) 87 (>60 ml/min/1.73 sqM); Albumin 4.2 g/dL (3.5-5.0); Alkaline Phosphatase 65 U/L (38-126); Anion Gap 7 mmol/L; Blood Urea Nitrogen 18 mg/dL (7-17); Calcium 9.4 mg/dL (8.4-10.2); Carbon Dioxide 23 mmol/L (22-30); Chloride 108 mmol/L (98-107); Glucose 131 mg/dL (74-99); Magnesium 2.1 mg/dL (1.6-2.3); Non-African American GFR(CKD) 76 (>60 ml/min/1.73 sqM); Sodium 138 mmol/L (137-145); Total Bilirubin 0.5 mg/dL (0.2-1.3); Total Protein 6.7 g/dL (6.3-8.2)
[2024-02-25 00:12] LABS: INR 0.9 (<1.2); Partial Thromboplastin Time 24.7 sec (22.0-30.0); Prothrombin Time 9.7 sec (10.0-12.5)
[2024-02-25 03:08] LABS: Creatine Kinase 302 U/L (30-135); Lipase 96 U/L (23-300)
[2024-02-25 03:18] LABS: NT-Pro-B-Type Natriuretic Pept 23 pg/mL
[2024-02-25 03:46] VITALS: BP 165/109; PULSE 63
[2024-02-25 04:32] LABS: T4, Free (Free Thyroxine) 0.22 ng/dL (0.78-2.19)
== END 2024-02-25 03:46 | disposition home or self-care (01) ==
LOC: EC 22:41
DX: R07.89 Other chest pain (principal); R06.00 Dyspnea, unspecified; R60.9 Edema, unspecified; Z87.891 Personal history of nicotine dependence; Z88.8 Allergy status to other drugs, medicaments and biological substances; Z90.49 Acquired absence of other specified parts of digestive tract
CPT/HCPCS: 36415; 71046; 80053; 82550; 83690; 83735; 83880; 84439; 84443; 84484; 85025; 85610; 85730; 93005; 99285